=== PATIENT | male | born 1960 | race Caucasian/White ===

== ENCOUNTER → 2024-03-23 10:13 | Outpatient (CLI) | payer OTHER, SELFPAY ==
--- NOTE | 2024-03-23 10:18 | EKG_ITS ---
[place] [address] [address], [place] [address] Test Date: 2024-03-23 Pat Name: Arsalan Pereira Department: Room: Gender: Male Hospital Pharmacist: ezynep : 1960 Requested By: Order Number: [id number] Reading MD: Madi Gerardo Measurements Intervals Mark Rate: 70 P: 29 NM: 202 QRS: 35 QRSD: 84 T: 31 QT: 382 QTc: 412 Interpretive Statements Normal sinus rhythm Electronically Signed On 03-24-2024 19:51:08 PDT by Madi Gerardo
[2024-03-23 10:42] LABS: Add Manual Diff / Slide Review NO; Basophils Absolute Auto 0 /uL (0-100); Basophils Percent Auto 0.4 % (0-2); Eosinophils Absolute Auto 100 /uL (0-450); Eosinophils Percent Auto 1.4 % (2-4); Hemoglobin 13.8 g/dL (13.5-17.5); Lymphocytes Absolute Auto 1700 /uL (1100-4500); Lymphocytes Percent Auto 17.2 % (25-40); Mean Corpuscular HGB Conc 33.7 % (30-36); Mean Corpuscular Hemoglobin 29.9 PG (26-34); Mean Corpuscular Volume 88.6 fL (80-100); Monocytes Absolute Auto 700 /uL (0-900); Monocytes Percent Auto 7.4 % (3-14); Neutrophils Absolute Auto 7300 /uL (1500-7000); Neutrophils Percent Auto 73.6 % (50-75); Platelet Count 243 X10^3/uL (150-400); Red Blood Cell Count 4.63 X10^6/uL (4.5-5.9); Red Cell Distribution Width 14.8 % (11.6-14.8); White Blood Cell Count 9.9 X10^3/uL (4.5-11.0)
[2024-03-23 11:03] LABS: BUN Creatinine Ratio 14.8 (6-22); Blood Urea Nitrogen 13 mg/dL (9-20); Carbon Dioxide 24 mmol/L (22-32); Chloride 105 mmol/L (98-107); Estimated Glomerular Filt Rate > 60 mL/min (>60); Glucose 89 mg/dL (80-110); HEMOLYSIS < 15 (0-50); Potassium 4.7 mmol/L (3.4-5.1); Sodium 136 mmol/L (137-145)
== END ==
PROVIDERS: Referring Provider Orthopaedic Surgery; Visit Provider Orthopaedic Surgery
DX: Z01.818 Encounter for other preprocedural examination (principal); Z01.812 Encounter for preprocedural laboratory examination
CPT/HCPCS: 36415; 80048; 85025; 93005

== ENCOUNTER → 2024-04-29 14:45 | Outpatient (CLI) | payer OTHER, SELFPAY ==
--- NOTE | 2024-04-29 | DI.CT.S_ITS ---
PROCEDURE: CT ANGIO CHEST INDICATIONS: Thoracic aortic aneurysm, without rupture, unspecified TECHNIQUE: After the administration of intravenous contrast, 2.5 mm thick sections acquired from the lung apices to the posterior lung bases. Maximum intensity projection (MIP) oblique sagittal reformats were then acquired parallel to the aortic arch. For radiation dose reduction, the following was used: automated exposure control. COMPARISON: None. FINDINGS: Image quality: Diagnostic. Aorta: Fusiform aneurysmal dilatation of the ascending aorta measuring 4.8 cm in greatest diameter (series 4, image 70). Remainder of the thoracic aorta appears patent and normal in caliber without aneurysmal dilatation, significant stenosis or dissection. Origins of the great vessels are patent. Lower Neck: No enlarged lymph nodes. Thyroid: No thyroid nodules which require sonographic follow up, per consensus guidelines. Axillae: No enlarged lymph nodes. Chest Wall: Unremarkable. Bones: Unremarkable. Lungs and Pleura: No pneumothorax or pleural effusions. No consolidation or suspicious nodules. Heart: Borderline heart size. Moderate degree of coronary artery calcifications. Thoracic Vessels: Pulmonary arteries demonstrate normal size. Mediastinum and Marlen: No enlarged lymph nodes. Esophagus: No wall thickening. Large hiatal hernia with paraesophageal component. 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 IMPRESSION: Fusiform aneurysmal dilatation of the ascending aorta measuring 4.8 cm in greatest diameter. Dictated by: Vitaly Petty M.D. on 04/29/2024 at 16:29 Approved by: Vitaly Petty M.D. on 04/29/2024 at 16:33
[2024-04-29 15:13] LABS: Estimated Glomerular Filt Rate > 60 mL/min (>60)
== END ==
PROVIDERS: Radiology Diagnostic Radiology; Referring Provider Internal Medicine; Visit Provider Internal Medicine
DX: I71.20 Thoracic aortic aneurysm, without rupture, unspecified (principal); I25.10 Atherosclerotic heart disease of native coronary artery without angina pectoris
CPT/HCPCS: 36415; 71275; 82565; Q9967

== ENCOUNTER 2024-05-19 07:22 | Day surgery (SDC) | payer OTHER, SELFPAY ==
[2024-04-08 12:45] VITALS: BMI 39.1
[2024-05-19] VITALS (7 sets, daily range): BP systolic 149–164; BP diastolic 79–107; PULSE 75–86; RESP 15–22; TEMP 36.1–36.5; O2SAT 90–97; BMI 39.1
--- NOTE | 2024-05-19 06:00 | DI.RAD.S_ITS ---
PROCEDURE: XR SHOULDER LT 1V INDICATIONS: TSA TECHNIQUE: 1 views of the shoulder were acquired. COMPARISON: None. FINDINGS: Bones: Left shoulder reverse arthroplasty postsurgical changes. Orthopedic hardware is in expected position. No fracture or dislocation. Moderate acromioclavicular joint osteoarthritis Soft tissues: No suspicious soft tissue calcifications. Cardiac loop recorder noted. IMPRESSION: Expected postsurgical change for left shoulder reverse arthroplasty. Dictated by: Carlyn Walker MD, PhD on 05/19/2024 at 12:45 Approved by: Carlyn Walker MD, PhD on 05/19/2024 at 12:46
--- NOTE | 2024-05-19 07:38 | P.HP_ITS ---
History of Present Illness History of Present Illness Date Patient Seen: 05/19/24 Time Patient Seen: 07:38 Chief complaint: Left Reverse TSA Narrative: This is a pleasant 63-year-old male here today for left shoulder replacement. He has known glenohumeral arthritis [facility] Medical History (Updated 04/08/24 @ 13:30 by Yajaira Carranza, RN) Neuropathy GIB (gastrointestinal bleeding) GERD (gastroesophageal reflux disease) Sarcoidosis HLD (hyperlipidemia) History of migraine headaches HTN (hypertension) PTSD (post-traumatic stress disorder) Depression Mcclain esophagus Urinary incontinence TRACY (obstructive sleep apnea) Asthma Surgical History (Updated 04/08/24 @ 13:36 by Yajaira Carranza, LEWIS) History of lumbar fusion History of cholecystectomy History of appendectomy History of tonsillectomy H/O hernia repair H/O cataract extraction History of loop recorder History of arthroplasty of right shoulder (2023) Social History household members: spouse Smoking Status: Former smoker alcohol intake: current Meds Home Medications and Allergies Home Medications Medication Instructions Recorded Confirmed Type acetaminophen 325 mg tablet 650 mg PO Q6H PRN Pain (Scale 04/08/24 04/08/24 History (Tylenol) Score 4-6) albuterol sulfate 90 mcg/actuation 2 puff inhalation Q6H PRN SOB 04/08/24 04/08/24 History aerosol inhaler atenolol 50 mg tablet 50 mg PO DAILY 04/08/24 04/08/24 History atorvastatin 40 mg tablet 40 mg PO DAILY 04/08/24 04/08/24 History carboxymethylcellulose sodium 0.5 1 drp EYE-BOTH QID PRN Dry Eyes 04/08/24 04/08/24 History % eye drops cholecalciferol (vitamin D3) 25 25 mcg PO DAILY 04/08/24 04/08/24 History mcg (1,000 unit) capsule (Vitamin D3) cyclobenzaprine 10 mg tablet 10 mg PO BEDTIME 04/08/24 04/08/24 History diphenhydramine 25 2 tab PO BEDTIME PRN Pain (Scale 04/08/24 04/08/24 History mg-acetaminophen 500 mg tablet Score 4-6) (Tylenol PM Extra Strength) docusate sodium 50 mg capsule 100 mg PO BEDTIME 04/08/24 04/08/24 History duloxetine 60 mg capsule,delayed 120 mg PO DAILY 04/08/24 04/08/24 History release erenumab-aooe 70 mg/mL 70 mg SUBCUT QMONTH 04/08/24 04/08/24 History subcutaneous auto-injector latanoprost 0.005 % eye drops 1 drp EYE-BOTH BEDTIME 04/08/24 04/08/24 History lidocaine 5 % topical patch 1 patch topical DAILY 04/08/24 04/08/24 History miconazole nitrate 2 % topical 1 spray topical BID 04/08/24 04/08/24 History spray powder mometasone 100 mcg/actuation HFA 2 puff inhalation BID PRN asthma 04/08/24 04/08/24 History aerosol inhaler nortriptyline 50 mg capsule 50 mg PO BEDTIME 04/08/24 04/08/24 History oxybutynin chloride 10 mg 20 mg PO BEDTIME 04/08/24 04/08/24 History tablet,extended release 24 hr pantoprazole 40 mg tablet,delayed 40 mg PO BID 04/08/24 04/08/24 History release polyethylene glycol 3350 17 17 g PO DAILY PRN Constipation 04/08/24 04/08/24 History gram/dose oral powder potassium chloride 10 mEq 30 meq PO DAILY 04/08/24 04/08/24 History capsule,extended release pregabalin 300 mg capsule 300 mg PO BID 04/08/24 04/08/24 History tamsulosin 0.4 mg capsule 0.8 mg PO BEDTIME 04/08/24 04/08/24 History Allergies Allergy/AdvReac Type Severity Reaction Status Date / Time morphine AdvReac Severe Rash Verified 04/08/24 13:03 ibuprofen AdvReac Gastrointestinal Verified 04/08/24 13:03 Upset metal sebas Allergy Uncoded 04/08/24 14:26 Review of Systems Review of Systems ROS: Yes All systems reviewed with the patient and are negative except as otherwise documented Exam Narrative Exam Narrative: HEENT: Head atraumatic eyes anicteric moist mucous membranes Cardiovascular: Palpable peripheral pulses extremities are warm and well perfused Respiratory: Breathing comfortably on room air Psychiatric: Appropriate mood and affect Neuro: No acute deficits Musculoskeletal: Exam of the left upper extremity demonstrates no obvious skin lesions or deformities. Limited range of motion as noted at his last office visit. Sensation intact to light touch in median, radial, ulnar, axillary nerve distributions. 2+ radial pulse with brisk capillary refill less than 2 seconds. Assessment & Plan Assessment & Plan narrative: Assessment: Left glenohumeral arthritis Plan: Left total shoulder replacement, likely reverse as previously discussed. Risks and benefits of surgery were discussed again including the risk of infection, damage to internal structures, bleeding, nerve injury, instability, need for revision surgery, blood clots, anesthesia and . No guarantees were made regarding outcomes. Patient expressed understanding and accepted these risks and wished to go forward with surgery and consent was signed. Time-Based Coding :: [TOTAL MINUTES] spent with patient and on the chart (including review of chart, obtaining history, exam, reviewing outside data, placing orders, documenting exam and treatment plan, and counseling patient) on [DATE].
[2024-05-19] MEDS: LACTATED RINGERS 1,000 ML 42 ML IV (08:26)
[2024-05-19] MEDS: ACETAMINOPHEN 325 MG TABLET 975 MG PO (08:26)
[2024-05-19] MEDS: ALBUTEROL 2.5 MG/3 ML NEB (ADULT) INH (08:31)
[2024-05-19] MEDS: CEFAZOLIN VIAL 3 GM in SODIUM CHLORIDE 0.9% 100 ML IV (09:53)
[2024-05-19 10:03] LABS: BUN Creatinine Ratio 11.3 (6-22); Blood Urea Nitrogen 11 mg/dL (9-20); Calcium 9.8 mg/dL (8.4-10.2); Carbon Dioxide 23 mmol/L (22-32); Chloride 107 mmol/L (98-107); Estimated Glomerular Filt Rate > 60 mL/min (>60); Glucose 100 mg/dL (80-110); HEMOLYSIS < 15 (0-50); Potassium 4.6 mmol/L (3.4-5.1); Sodium 137 mmol/L (137-145)
[2024-05-19] MEDS: TRANEXAMIC ACID 1,000 MG VIAL 1000 MG INJ (10:19)
--- NOTE | 2024-05-19 10:31 | SUR.OPER ---
Beach chair with skytron shoulder positioner. Lower body on padded OR bed. Head in foam padded head cradle, secured with straps. Non-operative arm secured <90 degrees abduction. Pillow under knees. Safety belt at thigh. Cloth tape over blanket over lower legs.
[2024-05-19] MEDS: BUPIVACAINE LIPOSOME 266 MG/20 ML VIAL INJ (10:42)
[2024-05-19] MEDS: BUPIVACAINE 0.25% (PF) 30 ML, EPINEPHrine 0.15 MG INJ (10:42)
--- NOTE | 2024-05-19 12:03 | PM.OP.1 ---
Operative Date/Time/Diagnoses Date of procedure: 05/19/24 Time of procedure: 12:03 Pre-op diagnosis: Left glenohumeral arthritis Post-op diagnosis: same Procedure & Clinicians Procedure: Left reverse total shoulder arthroplasty Same procedure as scheduled: Yes Indications: Indications: This is a 63-year-old male who has glenohumeral arthritis on the left. Symptoms have been present for years, insidious onset. Patient has failed a reasonable attempt at conservative therapy. After extensive discussion in clinic, they wished to go forward with surgery. Risks and benefits were described including the risk of infection, bleeding, damage to internal structures including nerves. We also discussed the risk of failure of surgery and the need for revision surgery as well as the risk of anesthesia. The patient expressed understanding with these risks and wished to go forward with surgery. Surgeon: Mike Arauz Admissions Supervisor: Polly Parikh Anesthesia Type: General Operative Notes Findings: Findings: Osteoarthritis of the glenoid and humeral head as well as mostly deficient subscapularis Closure Type: primary Specimen(s): none sent Prosthetic devices, grafts, tissues, transplants, or devices: Tornier implants Base plate: 29 mm, full wedge Glenosphere: 39 mm Stem: Perform 4 Poly: +0, 55% coverage Estimated Blood Loss (mL): 200 Procedure in detail: Patient was seen in the preoperative holding unit. The correct left shoulder was identified and marked with my initials. Again we discussed the risks and benefits of surgery and they wished to go forward with surgery. The patient was brought back to the operating room and placed supine on the operating table. Smooth endotracheal intubation was performed by anesthesia. All prominences were padded and they were placed into the beach chair position. Intravenous antibiotics were given. The left shoulder was then prepped with the standard sterile preparation and draping. A time-out was then performed in my initials were again identified on the correct shoulder. 1 g of IV tranexamic acid was given. A standard deltopectoral incision was made. Skin flaps were made. The cephalic vein was identified and retracted laterally. This was protected throughout the remainder of the case. Sharp dissection was made along the deltoid, subacromial and subcoracoid space to release adhesions. The conjoined tendon was identified and the axillary nerve was palpated and continuous using the tug test. It was protected throughout the remainder of the case. A brown retractor was placed underneath the deltoid muscle and a darach retractor underneath the conjoint tendon. The subscapularis muscle was ntoed to be intact but severely thinned. The anterior circumflex artery and associated veins on the lower border of the subscapularis were identified and tied off using 0-Vicryl. The biceps tendon was identified in the bicipital groove. This was released from its sheath, and taken from its origin on the glenoid and tied into the pectoralis tendon for a solid tenodesis. We then began a subscapularis peel. The subscapularis was tagged with an Ethibond suture. A 360 degree circumferential release of the subscapularis was performed with protection of the axillary nerve. The coracohumeral ligament was released at the base of the coracoid. The shoulder was then dislocated. Osteophytes were removed using combination of rongeur and osteotome. The rotator cuff was noted to be intact. An intramedullary guide was used set at version of 20?. Using an oscillating saw a conservative humeral head cut was made. Impaction reamers were reamed up to a size 4 stem with a built-in angle 135?. A neck protector was placed. Attention was then turned to the glenoid. After retracting the humeral head posteriorly a circumferential release was performed of the capsule with protection of the axillary nerve. The labrum was then released starting at the biceps anchor and going around the rim a small amount of triceps was released from the inferior glenoid. A center guide pin was then placed using the guide, followed by Reamer. After adequate cartilage was removed the boss was reamed and the centeral hole was drilled and measured. The base plate was then implanted and screwed into place. The peripheral screws were then sequentially drilled, measured, and placed. A 36 standard glenosphere was then selected and screwed into place onto the base plate. Turning back to the humerus, the humeral head was delivered and trialed with a 0 concentric. The arm was taken through range of motion and this was felt to be stable. The trial was then removed and a dilute Betadine wash was then performed with 1 L of sterile saline. Before placing the final implant, drill holes were made in the bicipital groove for the subscapularis repair, and sutures were passed through the drill holes. The final stem was then impacted into the humerus. The shoulder was then reduced and again brought through range of motion and was felt to be stable. The subscapularis was then repaired using a modified racking hitch with nice loupes. The deltopectoral interval was then closed with #2 Ethibond. The skin was closed with 2-0 vicryl and 3-0 Monocryl followed by Aquacel dressing. Patient was awoken from anesthesia and brought back to the postoperative recovery unit without issue. They were placed into a sling. Assisting participation: This operation could not have been safely performed (without compromising the technical results or length of the procedure) without the assistance of a skilled assistant professor surgical technology. The assistant professor surgical technology was medically necessary for proper positioning, retraction and manipulation of instruments, proper exposure, graft prep, and manipulation of tissue. Complications: none Post-operative Condition: stable Disposition: PACU Plan for aftercare: Postoperative instructions: Sling to remain on for 6 weeks. No external rotation past neutral for 6 weeks. Okay for the sling to come off for shower. Okay to shower over the Aquacel dressing. If any water gets underneath the dressing, remove the dressing. First postoperative visit in 2 weeks.
[2024-05-19] MEDS: HYDROMORPHONE 2 MG TABLET PO (12:19)
== END 2024-05-19 12:51 | disposition home or self-care (01) ==
LOC: OR 07:23 → AC 07:23
PROVIDERS: Anesthesiology; Referring Provider Orthopaedic Surgery; Visit Provider Orthopaedic Surgery
PROC: (CPT 23472; principal; 2024-05-19 09:15)
DX: M19.012 Primary osteoarthritis, left shoulder (principal); M25.712 Osteophyte, left shoulder
CPT/HCPCS: 23472; 73020; 80048; C1776; C9290; J0171; J0330; J0690; J1100; J2250; J2405; J2704; J3010; J7613

== ENCOUNTER → 2024-09-15 12:29 | Outpatient (CLI) | payer OTHER, SELFPAY ==
[2024-09-15 13:33] LABS: Add Manual Diff / Slide Review NO; Basophils Absolute Auto 100 /uL (0-100); Basophils Percent Auto 0.7 % (0-2); Eosinophils Absolute Auto 100 /uL (0-450); Eosinophils Percent Auto 0.9 % (2-4); Hematocrit 45.2 % (41-53); Hemoglobin 15.1 g/dL (13.5-17.5); Lymphocytes Absolute Auto 2300 /uL (1100-4500); Lymphocytes Percent Auto 23.4 % (25-40); Mean Corpuscular HGB Conc 33.5 % (30-36); Mean Corpuscular Hemoglobin 28.4 PG (26-34); Mean Corpuscular Volume 84.9 fL (80-100); Monocytes Absolute Auto 600 /uL (0-900); Monocytes Percent Auto 6.2 % (3-14); Neutrophils Absolute Auto 6700 /uL (1500-7000); Neutrophils Percent Auto 68.8 % (50-75); Platelet Count 254 X10^3/uL (150-400); Red Blood Cell Count 5.32 X10^6/uL (4.5-5.9); Red Cell Distribution Width 14.6 % (11.6-14.8); White Blood Cell Count 9.7 X10^3/uL (4.5-11.0)
== END ==
LOC: LAB 12:33
PROVIDERS: Referring Provider Orthopaedic Surgery Foot and Ankle Surgery; Visit Provider Orthopaedic Surgery Foot and Ankle Surgery
DX: Z01.818 Encounter for other preprocedural examination (principal)
CPT/HCPCS: 36415; 85025

== ENCOUNTER 2024-10-19 07:20 | Day surgery (SDC) | payer OTHER, SELFPAY ==
[2024-10-10 09:47] VITALS: BMI 41.1
[2024-10-19] VITALS (19 sets, daily range): BP systolic 107–139; BP diastolic 62–96; PULSE 81–112; RESP 12–20; TEMP 36.3–37.2; O2SAT 91–96; BMI 41.1
--- NOTE | 2024-10-19 06:00 | DI.RAD.S_ITS ---
PROCEDURE: XR KNEE LT 1TO2V INDICATIONS: total left knee TECHNIQUE: 2 view(s) of the knee acquired. COMPARISON: None. FINDINGS: Bones: Patient is status post knee joint arthroplasty. Hardware components are in expected positions. Visualized bony structures are intact. Soft tissues: Overlying postoperative changes are noted. IMPRESSION: Expected post-operative appearance of a knee arthroplasty. Dictated by: Carley Parikh M.D. on 10/19/2024 at 12:05 Approved by: Carley Parikh M.D. on 10/19/2024 at 12:05
--- NOTE | 2024-10-19 08:07 | PM.PREOP ---
Pre-operative Note Interval Note History & Physical reviewed/Exam performed by Physician: Yes Changes to H&P: No
[2024-10-19] MEDS: ALBUTEROL/IPRATROPIUM 3 ML AMPUL INH (08:16)
[2024-10-19] MEDS: FAMOTIDINE 20 MG/2 ML VIAL IV (08:17)
[2024-10-19] MEDS: LACTATED RINGERS 1,000 ML 42 ML IV (08:17)
[2024-10-19] MEDS: ACETAMINOPHEN 325 MG TABLET 975 MG PO (08:17)
[2024-10-19] MEDS: CELECOXIB 200 MG CAPSULE PO (08:18)
--- NOTE | 2024-10-19 08:18 | PM.OP.1 ---
Operative Date/Time/Diagnoses Date of procedure: 10/19/24 Time of procedure: 08:45 Pre-op diagnosis: Left knee arthritis BMI 41 Post-op diagnosis: same Procedure & Clinicians Procedure: Total knee arthroplasty, left CPT code 06762 Robotic assisted surgery [id number] Computer navigated assisted surgery [id number] Same procedure as scheduled: Yes Indications: The patient is a 64-year-old male with end-stage [id number] knee arthritis. The patient has a significant bilateral varus knee arthritis. He has failed conservative treatment for his left knee arthritis and it was indicated for left total knee arthroplasty. They have failed conservative treatment with activity modifications, injections, physical therapy and bracing. They has been indicated for total knee replacement. The risks and benefits of the procedure have been discussed with the patient even opportunity to ask questions. The risks of surgery include but are not limited to infection, malunion, nonunion, fracture, loosening, persistence of pain, damage to nerves and blood vessels, need for additional procedures, DVT, PE, cardiopulmonary complications and . The patient expressed a thorough understanding of the risks and benefits of surgery and has elected to proceed. Consent was signed in the office. During the operation the services of physician surgical scrub tech were medically indicated and necessary to provide the exposure of the operative site for the surgical procedure and to maintain the limb in a proper position to carry out the procedure safely and efficiently. Without a qualified laboratory chemical assistant being present this would extend the operative procedure and would have made the procedure more technically difficult to perform. The surgical scrub tech was medically necessary for the proper positioning, retraction and manipulation of the limb, proper exposure, and manipulation of the tissue for implantation implants and closure. Surgeon: Chari Cook Alarm Installation Technician: Semaj Jones Anesthesia Type: General, Peripheral nerve block and Local Operative Notes Findings: End-stage severe tricompartmental knee arthritis, varus pattern left knee large marginal osteophytes and full-thickness cartilage loss Closure Type: primary Specimen(s): none sent Prosthetic devices, grafts, tissues, transplants, or devices: Mclean and nephew journey 2 bcs Femur Oxinium8 Tibia7 Patella 35x7.5 Poly 9mm Estimated Blood Loss (mL): 200 Blood products transfused: none Tourniquet time (min): 88 Procedure in detail: Patient was seen in the preoperative area where the patient and site of surgery were identified in the operative knee was marked informed consent confirmed. This was the left knee. Patient received the appropriate preoperative antibiotics this was 3 g of Ancef. And other preoperative medications and was taken to the operating room placed on operating table in the supine position. Spinal anesthetic were administered. The operative extremity was then prepped and draped in the standard sterile fashion with a nonsterile tourniquet high on the thigh. Patient was placed on the green foam bolsters. A lateral post was placed at the level of the proximal thigh /trochanter area as a lateral post. Formal time-out procedure was performed confirming the patient's side and site of surgery and administration of appropriate preoperative antibiotics and implants were in the room accounted for. All were in agreement. Patient received a preoperative dose of tranexamic acid and then a 2nd dose at tourniquet release Patient was prepped and draped in the standard sterile fashion and the foot was placed into the leg de la paz. This was taken into high flexion and the incision was marked out over the anterior knee to the level of the medial tubercle tubercle. The Esmarch was then used for exsanguination and the tourniquet was inflated to 250 mmHg. Was made through the skin and subcutaneous tissue in high flexion this was then brought down into 30? of flexion for the medial parapatellar arthrotomy. A marker pen was used to staci the arthrotomy site for later repair. Joint fluid was evacuated. The anterior osteophytes and soft tissues were removed. Routine medial release was initially made along the medial proximal tibia with Bovie. The patella was 1st cut using the saw sized and prepped and then subluxed throughout the case and protected. The leg was then taken into extension and the patella was everted and the patella was cut to accommodate the patellar button. This was sized to a 35mm button for a 7.5 mm thickness to recreate the original dimensions of the patella. Poly was removed and the protector replaced and the patella was subluxed and the knee was taken back up into flexion and attention was returned to the femur. Then the rotational landmarks of [place] line and the trans epicondylar axis were marked on the femur with electrocautery. ACL and PCL were released. Then the Cori robotic pins were placed into the femur and tibia and the race set up. Landmarks were established and the robotic planning was commenced. Plan was developed and improved and adjusted as necessary to create a balanced knee. Knee was balanced using 3.5? of external rotation in the distal femur. Initial 2 mm were taken off the distal femur for the flexion contracture and then an additional 1 mm off the tibia balance the knee to 1-2 mm in flexion and extension in both medial and lateral compartments. Plan was satisfactory the bur was used to remove the distal femur then the 5 in 1 cutting block was applied complete the femur cuts. Attention was then turned to the tibia and the tibial resection was made in accordance with the robotic planning. The trials were placed. And the femoral notch was cut a standard fashion using Reamer then slap hammer. The knee was trialed and the checked. Knee was balanced in flexion extension. Range of motion 0-135 degrees was obtained. The rotation femoral trial was marked Bovie on the bone and checked with a long hany. The tibia was then finished with a drill and flange cut and then The trial implants were removed. Then in extension the posterior capsule was injected with a mixture of 40 mL of 0.25% Marcaine and 20 mL of 266 mg Exparel care to avoid excessive injection posterior laterally. The remainder of this was saved for the capsule and subcutaneous tissue and placed during cement curing. The wound and bone was irrigated with pulsatile lavage. This was then dried with a sponge. The components were verified and opened and the cement was mixed. Cement was applied to the components and then to the bone then the tibia was cemented in place 1st followed by the femur then the patella. Excess cement was removed. With care looking around the back of the knee. Remainder of the injection was injected around the capsule. trial poly was placed back in the leg was placed into extension for the patellar cementing. After this was cured approximately 15 minutes later and the dilute Betadine solution was placed for at least 3 minutes in the wound this was then irrigated out and the final poly was placed. This was a 9 mm poly. The tourniquet was released hemostasis was achieved. Final 1g of tranexamic acid was given IV at the time of tourniquet release. The capsule was closed with 1. Ethibond suture. Followed by a running Quill stitch. Subcutaneous layer was closed with 3-0 Vicryl suture. Skin was closed with a running V lock suture Stratafix Monocryl type suture and Dermabond. An Aquacel dressing was placed . An Newton wrap was applied. Anesthetic was terminated the patient was woken from anesthesia and taken to recovery room in good condition. There no immediate complications from this procedure. The patient will be maintained on a standard total knee replacement protocol with weight-bearing as tolerated. Complications: none Post-operative Condition: stable Disposition: PACU Plan for aftercare: Standard total knee postoperative rehab full weight-bearing immediate range of motion. Cryotherapy. Start physical therapy within 1 week. Use assistive devices for ambulation. Follow up in Orthopedic Clinic in 2 weeks. Aspirin 81 mg b.i.d. x6 weeks for DVT prophylaxis.
--- NOTE | 2024-10-19 08:24 | EKG_ITS ---
[place] [id number] [place] [id number] Test Date: 2024-10-19 Pat Name: Arsalan Pereira Department: [facility] Room: Gender: Male Cargo Agent: MAURICE : 1960 Requested By: Order Number: [id number] Reading MD: Richard Asif MD Measurements Intervals [place] Rate: 89 P: 22 ND: 178 QRS: 62 QRSD: 86 T: -15 QT: 372 QTc: 452 Interpretive Statements Normal sinus rhythm Cannot rule out Inferior infarct , age undetermined Electronically Signed On 10-19-2024 11:03:04 PDT by Richard Asif MD
--- NOTE | 2024-10-19 08:25 | EKG_ITS ---
[facility] [address], [place] [address] Test Date: 2024-10-19 Pat Name: Arsalan Pereira Department: [facility] Room: Gender: Male First Aid Nurse: MAURICE : 1960 Requested By: Order Number: [id number] Reading MD: Richard Asif MD Measurements Intervals [place] Rate: 89 P: 3 [place]: 204 QRS: 63 QRSD: 88 T: 4 QT: 376 QTc: 457 Interpretive Statements Normal sinus rhythm Electronically Signed On 10-19-2024 11:03:06 PDT by Richard Asif MD
--- NOTE | 2024-10-19 08:45 | SUR.PREOP ---
Block start time 0832 with a time out. Monitoring initiated and maintained throughout procedure. Oxygen and medications given by anesthesia provider or per provider's instructions. Patient remained stable throughout procedure, no adverse reactions noted. Block end time 0835.
[2024-10-19] MEDS: CEFAZOLIN 2 GM/100 ML PREMIX 100 ML IV (08:55)
[2024-10-19] MEDS: TRANEXAMIC ACID 1,000 MG VIAL 1000 MG INJ ×2 (09:10→10:37)
--- NOTE | 2024-10-19 09:17 | SUR.OPER ---
Continued from skin description: 1cm lesion on patient anterior guillen, I pulled off a scab last week Dr. Cook aware.
--- NOTE | 2024-10-19 09:21 | SUR.OPER ---
Supine on padded OR bed. Pillow under head, arms secured on padded armboards <90 degree abduction. Safety belt across torso. Non-operative leg secured with tape over blanket over lower leg. Operative leg secured in DeMayo positioner. Foam padded brace at thigh of operative leg.
[2024-10-19] MEDS: BUPIVACAINE LIPOSOME 266 MG/20 ML VIAL INJ (09:32)
[2024-10-19] MEDS: BUPIVACAINE 0.25% W/ EPI 30 ML VIAL 60 ML INJ (09:32)
[2024-10-19] MEDS: LACTATED RINGERS 1,000 ML 100 ML IV (12:45)
--- NOTE | 2024-10-19 15:31 | PT-IP ANOTE ---
PT eval order received. EMR reviewed. checked with nurse and stated that pt is not ready for PT. pt is asleep and unable to stay awake at this time.
[2024-10-19] MEDS: CEFAZOLIN VIAL 3 GM in SODIUM CHLORIDE 0.9% 100 ML IV (16:47)
[2024-10-19] MEDS: PANTOPRAZOLE DR 40 MG TABLET PO (21:12)
[2024-10-19] MEDS: ASPIRIN EC 81 MG TABLET PO (21:12)
[2024-10-19] MEDS: NORTRIPTYLINE HCL 25 MG CAPSULE 50 MG PO (21:12)
[2024-10-19] MEDS: PREGABALIN 75 MG CAPSULE 300 MG PO (21:13)
[2024-10-19] MEDS: DOCUSATE 100 MG CAPSULE PO (21:13)
[2024-10-19] MEDS: ACETAMINOPHEN 325 MG TABLET 650 MG PO (21:13)
[2024-10-19] MEDS: TAMSULOSIN 0.4 MG CAPSULE 0.8 MG PO (21:14)
[2024-10-19] MEDS: CYCLOBENZAPRINE 10 MG TABLET PO (21:14)
[2024-10-19] MEDS: HYDROMORPHONE 2 MG TABLET 4 MG PO (21:25)
[2024-10-20] VITALS: BP 96/58; PULSE 86; RESP 24; TEMP 37.2; O2SAT 93
[2024-10-20] MEDS: HYDROMORPHONE 2 MG TABLET 4 MG PO ×2 (02:07→05:19)
[2024-10-20] MEDS: ACETAMINOPHEN 325 MG TABLET 650 MG PO ×2 (02:08→09:07)
[2024-10-20 05:39] LABS: Hematocrit 39.1 % (41-53); Hemoglobin 12.9 g/dL (13.5-17.5)
--- NOTE | 2024-10-20 08:01 | P.DS_ITS ---
History of Present Illness History of Present Illness Date Patient Seen: 10/20/24 Time Patient Seen: 08:01 Chief complaint: Left Total Knee Arthroplasty - Robot Narrative: Operative Date/Time/Diagnoses Date of procedure: 10/19/24 Time of procedure: 08:45 Pre-op diagnosis: Left knee arthritis BMI 41 Post-op diagnosis: same Procedure & Clinicians Procedure: Total knee arthroplasty, left CPT code 11841 Robotic assisted surgery [id number] Computer navigated assisted surgery [id number] Same procedure as scheduled: Yes Indications: The patient is a 64-year-old male with end-stage lwdx-el-rggw knee arthritis. The patient has a significant bilateral varus knee arthritis. He has failed conservative treatment for his left knee arthritis and it was indicated for left total knee arthroplasty. They have failed conservative treatment with activity modifications, injections, physical therapy and bracing. They has been indicated for total knee replacement. The risks and benefits of the procedure have been discussed with the patient even opportunity to ask questions. The risks of surgery include but are not limited to infection, malunion, nonunion, fracture, loosening, persistence of pain, damage to nerves and blood vessels, need for additional procedures, DVT, PE, cardiopulmonary complications and . The patient expressed a thorough understanding of the risks and benefits of surgery and has elected to proceed. Consent was signed in the office. During the operation the services of physician miller head assistant wet process were medically indicated and necessary to provide the exposure of the operative site for the surgical procedure and to maintain the limb in a proper position to carry out the procedure safely and efficiently. Without a qualified pastrycook's assistant being present this would extend the operative procedure and would have made the procedure more technically difficult to perform. The miller head assistant wet process was medically necessary for the proper positioning, retraction and manipulation of the limb, proper exposure, and manipulation of the tissue for implantation implants and closure. Surgeon: Chari Cook Wagon Driver: Semaj Jones Anesthesia Type: General, Peripheral nerve block and Local Operative Notes Findings: End-stage severe tricompartmental knee arthritis, varus pattern left knee large marginal osteophytes and full-thickness cartilage loss Closure Type: primary Specimen(s): none sent Prosthetic devices, grafts, tissues, transplants, or devices: Mclean and nephew journey 2 bcs Femur Oxinium8 Tibia7 Patella 35x7.5 Poly 9mm Estimated Blood Loss (mL): 200 Blood products transfused: none Tourniquet time (min): 88 Discharge Providers Provider Discharge Date: 10/20/24 Primary care physician: Ivon Frankel MD Consults: 10/19/24 12:44 Consult to Discharge Planning Routine Comment: Consult to Occupational Therapy Evaluate & Treat Comment: Physician Instructions: Evaluate and treat Consult to Physical Therapy Evaluate & Treat Comment: Physician Instructions: postop TKA protocol Discharge provider: Ya Contreras PA-C Summary Hospital Course Discharge Diagnosis: Left knee osteoarthritis, s/p left total knee arthroplasty Hospital Course: Mr Pereira'yamila hospital course was unremarkable. On the morning of POD# 1, he was feeling well and wanted to go home. He had not yet worked w/ PT but had been OOB and walking. He was eating and voiding without difficulty and his pain was well-controlled with oral medication. Exam Vital Signs (past 8 hours): Oxygen Delivery Method Venturi Mask Oxygen Flow Rate 5 Narrative Exam Narrative: 5/5 strength in hip flexors, quadriceps, hamstrings, PF, DF, EHL on right. Sensation to light touch intact throughout RLE, calf soft and compressible. Aquacel CDI. Objective Labs 10/20/24 05:00 Labs: Laboratory Results - last 24 hr 10/20/24 05:00 Hgb 12.9 L Hct 39.1 L PFSH Medical History (Updated 10/12/24 @ 08:46 by Georgiana Garcia RN) Thoracic aortic aneurysm Hearing loss Neuropathy GIB (gastrointestinal bleeding) GERD (gastroesophageal reflux disease) Sarcoidosis HLD (hyperlipidemia) History of migraine headaches HTN (hypertension) PTSD (post-traumatic stress disorder) Depression Mcclain esophagus Urinary incontinence TRACY (obstructive sleep apnea) Asthma Surgical History (Updated 10/10/24 @ 10:17 by Georgiana Garcia RN) History of total replacement of left shoulder joint (05/19/24) History of surgery (07/28/24) History of lumbar fusion History of cholecystectomy History of appendectomy History of tonsillectomy H/O hernia repair H/O cataract extraction History of loop recorder History of arthroplasty of right shoulder (2023) Social History household members: spouse Smoking Status: Current every day smoker alcohol intake: current Discharge Assessment & Plan Assessment and Plan Assessment: Left knee osteoarthritis, s/p left total knee arthroplasty Plan of Treatment: Discharge home, outpt PT, ASA 81mg BID for VTE prophylaxis, f/u in 2 weeks as scheduled. Discharge Plan Discharge Plan Patient Disposition: Home Discharge orders & Medications Discharge Orders: Discharge (Order); Ordered 10/20/24 Ordered By: Ya Contreras Prescriptions: New hydromorphone 2 mg tablet 2 mg PO Q4H PRN (Reason: pain) Qty: 30 0RF Rx Instructions: postop exempt ondansetron 4 mg tablet,disintegrating 4 mg PO Q8H PRN (Reason: nausea and vomiting) Qty: 7 1RF Continued cyclobenzaprine 10 mg Tablet 10 mg PO BEDTIME PRN (Reason: Muscle Spasm) pregabalin 300 mg capsule 300 mg PO BID atenolol 50 mg Tablet 50 mg PO DAILY latanoprost 0.005 % Drops 1 drp EYE-BOTH BEDTIME atorvastatin 40 mg Tablet 40 mg PO DAILY potassium chloride 10 mEq Capsule, Extended Release 30 meq PO DAILY acetaminophen [Tylenol] 325 mg Tablet 650 mg PO Q6H PRN (Reason: Pain (Scale Score 4-6)) oxybutynin chloride 10 mg Tablet Extended Release 24hr 20 mg PO BEDTIME PRN (Reason: Bladder Spasms) docusate sodium 50 mg Capsule 100 mg PO BEDTIME tamsulosin 0.4 mg Capsule 0.8 mg PO BEDTIME carboxymethylcellulose sodium 0.5 % Drops 1 drp EYE-BOTH QID PRN (Reason: Dry Eyes) pantoprazole 40 mg Tablet,Delayed Release (Dr/Ec) 40 mg PO BID lidocaine 5 % Adhesive Patch,Medicated 1 patch TOPICAL DAILY PRN (Reason: Pain) Rx Instructions: leave on most painful area for up to 12 hrs polyethylene glycol 3350 17 gram/dose Powder 17 g PO DAILY PRN (Reason: Constipation) albuterol sulfate 90 mcg/actuation Hfa Aerosol Inhaler 2 puff INHALATION Q6H PRN (Reason: SOB) diphenhydramine-acetaminophen [Tylenol PM Extra Strength] 25-500 mg Tablet 2 tab PO BEDTIME PRN (Reason: Pain (Scale Score 4-6)) nortriptyline 50 mg Capsule 50 mg PO BEDTIME cholecalciferol (vitamin D3) [Vitamin D3] 25 mcg (1,000 unit) Capsule 25 mcg PO DAILY duloxetine 60 mg Capsule,Delayed Release(Dr/Ec) 120 mg PO DAILY mometasone 100 mcg/actuation Hfa Aerosol Inhaler 2 puff INHALATION BID PRN (Reason: asthma) erenumab-aooe 70 mg/mL Auto-Injector 70 mg SUBCUT QMONTH ondansetron 4 mg tablet,disintegrating 4 mg PO Q8H PRN (Reason: nausea and vomiting) Qty: 10 0RF Discontinued hydrocodone-acetaminophen 5-325 mg tablet 1 tab PO Q4-6H PRN (Reason: pain) Qty: 30 0RF Follow up/Referrals: Polly Parikh PA-C [Advanced Digital Campaign Manager] - 10/28/24 1:30 pm (appt:10/28 @ 1:30 with Angelina PIERCE @ [facility] ) Ivon Frankel MD [Primary Care Provider] - Diet/Activity/Treatments Diet: Diet as Tolerated Other treatments: Dressing/Wound care: -Remove the Newton wrap 48 hours after surgery. -Keep Aquacell dressing in place until postoperative follow-up office visit. -you may see some drainage on the bandage, this is ok. If it is leaking or saturated, then the dressing can be changed to clean gauze or a clean surgical dressing from a pharmacy or reinforced with additional gauze and paper tape or dressings over the top. Otherwise, just keep dressing in place until follow up. -Okay to shower. Keep wound out of direct water stream. No soaking or submerging until all the scabs fall off (approximately 6 weeks). -Please call the office if dressing becomes significantly wet, soiled, or saturated. Activities: -Weight-bearing as tolerated. Use front wheeled walker, and progress to cane when safe. -Continue with home exercises as directed by your physical therapist. -Elevate ?toes above the nose if you have significant swelling in your lower leg. (A wedge pillow is easiest.) -Ice your incision as needed for pain/inflammation/swelling. Protect your skin with a folded pillowcase. Follow-up: -Follow-up with your surgeon or PA in the office in 10-14 days after surgery. -Follow-up with your surgeon 6 weeks postoperatively. Call the office if you have chest pain, shortness of breath, significant swelling that will not resolve with elevating, fever over 101?, significantly worsening pain. [facility]: [phone] You have been discharged with medications. These have already been sent to your pharmacy. Pain include pain medications: Oxycodone take 5 mg orally every 4 hours as needed for pain. If your pain is more severe you may take up to 2 or a maximum 3 pills (15 mg) every 4 hours for pain. Take the smallest dose necessary. Instead of oxycodone you may be discharged with hydromorphone. If discharged with hydromorphone 2 mg tablets she may take 1-2 every 3-4 hours as needed for pain. Take the smallest dose necessary. If you have been discharged with tramadol you may take 50 mg or 1 tablet every 4-6 hours as needed for pain. Narcotic medication can make you feel constipated. You can get goao-vpg-yzfakqf stool softener such as docusate sodium-Colace at a pharmacy to help with this. You also have prescriptions for ibuprofen 800 mg take this 3 times a day for least the 1st 10 days after surgery to help with pain control. And acetaminophen (Tylenol) take 500-1000 mg 3 times a day for pain control. You also have a prescription for Zofran (ondansetron) this is a strong anti nausea medication that can be taken up to every 8 hours as needed for nausea Additionally will take a baby aspirin 81 mg twice a day (morning and night) to help prevent blood clots If you have been discharged with ketorolac (toradol) this is a strong anti- inflammatory, do not take ibuprofen/meloxicam/mortin or other NSAIDS while on ketorolac. Once your ketorolac prescription is finished, you may restart taking other NSAIDs again. narcotic pain medication, tylenol and aspirin are fine to continue while on ketorolac. Skin/Wound/Dressing Care Report to your healthcare provider any signs of infection, such as:: chills, fever, night sweats, increased pain, unusual drainage and unusual redness Visit Report/Discharge Packet Instructions: DI for Knee Replacement, DI for Prescription Opioid Use Stand Alone Forms: Patient Portal/API Discharge Data Primary Care Provider: Ivon Frankel Attending Provider: Chari Cook VTE Deep Vein Thrombosis/Pulmonary Embolism Present on Admission: No
[2024-10-20] MEDS: POTASSIUM CHLORIDE 10 MEQ TAB 30 MEQ PO (09:06)
[2024-10-20] MEDS: PANTOPRAZOLE DR 40 MG TABLET PO (09:06)
[2024-10-20] MEDS: ATORVASTATIN 20 MG TABLET 40 MG PO (09:06)
[2024-10-20] MEDS: ASPIRIN EC 81 MG TABLET PO (09:06)
[2024-10-20] MEDS: atenoloL 25 MG TABLET 50 MG PO (09:07)
[2024-10-20] MEDS: PREGABALIN 75 MG CAPSULE 300 MG PO (09:07)
[2024-10-20] MEDS: DOCUSATE 100 MG CAPSULE PO (09:07)
[2024-10-20] MEDS: DULOXETINE 30 MG CAPSULE 120 MG PO (09:07)
--- NOTE | 2024-10-20 10:50 | PT.IIE ---
Current Diagnoses Unilateral primary osteoarthritis, left knee (10/19/24) Surgery Performed Operation Date: 10/19/24 08:45 Actual Procedures p Total Knee Arthroplasty - Robot(Left) - Chari Cook MD Surgical History (Last Updated 10/10/24 @ 10:17 by Georgiana Garcia, RN) H/O cataract extraction H/O hernia repair History of appendectomy History of arthroplasty of right shoulder (2023) History of cholecystectomy History of loop recorder History of lumbar fusion History of surgery (07/28/24) History of tonsillectomy History of total replacement of left shoulder joint (05/19/24) Medical History (Last Updated 10/12/24 @ 08:46 by Georgiana Garcia, RN) Asthma Mcclain esophagus Depression GERD (gastroesophageal reflux disease) GIB (gastrointestinal bleeding) Hearing loss History of migraine headaches HLD (hyperlipidemia) HTN (hypertension) Neuropathy TRACY (obstructive sleep apnea) PTSD (post-traumatic stress disorder) Sarcoidosis Thoracic aortic aneurysm Urinary incontinence Physical Therapy Inpatient Evaluation/Re-Eval M1 PT/OT-IP Prior Functional Status Start: 10/19/24 15:23 Freq: NEEDED Status: Discharge Protocol: Document 10/20/24 10:55 [facility] (Rec: 10/20/24 18:17 [facility] [id number]) Medical Review Prior Functional Status Medical History Reviewed Yes Diet/Fluid Consistency Regular Communication [place] Mobility and Gait used cane, walkers and WC in house-back limits him Activities of Daily Living and IADL's helps dress and bath Social History Household Members spouse Living Arrangements House Number of Floors (Floors) One Floor Number of Stairs To Enter/Railing? 4 [place]NE[place] w/rails Home Environment Standard Height Toilet,Walk in Shower Home Equipment Grab Bars In Shower Employment Status Retired Additional Social History Comment getting a BSC in a couple days , grab bars in shower M2 PT-IP Current Condition Start: 10/19/24 15:23 Freq: NEEDED Status: Discharge Protocol: Document 10/20/24 10:55 [facility] (Rec: 10/20/24 18:17 [facility] [id number]) Physical Therapy Current Condition Current Condition Evaluation Date 10/20/24 Treatment Diagnosis L TKA M3 PT-IP Subjective Start: 10/19/24 15:23 Freq: NEEDED Status: Discharge Protocol: Document 10/20/24 10:55 [facility] (Rec: 10/20/24 18:17 [facility] [id number]) Subjective Physical Therapy Visit Type Type Initial Evaluation Visit Start Time 09:55 Visit Stop Time 10:48 Number of WATCH DIAL PRINTER Visits 0 M4 PT-IP Mobility and Gait Start: 10/19/24 15:23 Freq: NEEDED Status: Discharge Protocol: Document 10/20/24 10:55 [facility] (Rec: 10/20/24 18:17 [facility] [id number]) PT-Bed Mobility Assessment Supine to Sit Supine to Sit Standby Assistance Sit to Supine Sit to Supine Minimal Assistance PT-Transfer Assessment Sit to and From Stand Sit to and from Stand Standby Assistance Equipment Transfer Assistive Device Gait Belt,Front Wheeled Walker Orthotic/Prosthetic Devices or Brace: No Gait Assessment Gait Gait Assistance Required: Standby Assistance Distance (Feet) 140 Assistive Devices Assistive Device Front Wheeled Walker Orthotic/Prosthetic Devices or Brace: No Gait Deviations General Gait Pattern Decreased Stride Length,Flexed Trunk,Step-to Gait Factors Limiting Gait Function Factors Limiting Gait Function Decreased Activity Tolerance, Decreased Strength,Limited Range of Motion,Pain Stair Climbing Assessment Evaluation Level of Assist On Stairs Standby Assistance Devices Stair Climbing Assistive Devices Left Railing,Right Railing Technique/Endurance Stair Climbing Direction Ascend and Descend Stair Climbing Technique Step to Step Number of Steps Climbed 3 Query Text: Stair Climbing Set # Repetitions (reps) 1 PT-Balance Assessment Sitting Balance and Reactions Static Sitting Balance Ability Good Dynamic Sitting Balance Ability Good Standing Balance and Reactions Static Standing Balance Ability Good Dynamic Standing Balance Ability Fair M5 PT-IP Objective Assessments Start: 10/19/24 15:23 Freq: NEEDED Status: Discharge Protocol: Document 10/20/24 10:55 [facility] (Rec: 10/20/24 18:17 [facility] [id number]) Orientation Orientation/Cognition Level of Alertness Alert Language Function Ability Hard of Hearing Gross Range of Motion Lower Extremity ROM Assessment Left Impaired Strength Lower Extremity Strength Assessment Left Impaired Muscle Tone Muscle Tone WNL Yes M6 PT-IP Treatment Start: 10/19/24 15:23 Freq: NEEDED Status: Discharge Protocol: Document 10/20/24 10:55 [facility] (Rec: 10/20/24 18:17 [facility] [id number]) Physical Therapy Treatment Exercises Exercises Ankle Pumps,Quad Sets,Heel Slides,Straight Leg Raises, Short Arc Quads,Passive Knee Extension Hang,Seated Knee Flexion/Extension Education Education Provided Precautions,Weight Bearing Status,Post-Op Packet,Safety M7 PT-IP Assessment and Plan Start: 10/19/24 15:23 Freq: NEEDED Status: Discharge Protocol: Document 10/20/24 10:55 [facility] (Rec: 10/20/24 18:17 [facility] [id number]) PT Summary Assessment and Plan Potential Rehabilitation Potential Excellent Status of Condition at Evaluation Evolving Summary Impairments Pain,ROM,Strength,Balance,Bed Mobility,Transfers,Gait, Activity Tolerance Assessment Summary Pt presents day 1 s/p L TKA w/ good pain control overall and is motivated to get home. He did well with mobility requiring no more than min A which is typical baseline mobility for him as his is supportive and helps him as needed at home. they are prepared w/ADs at home and had no further questions from PT. DC PT Goals Bed Mobility Goal Standby Assistance Transfer Goal Standby Assistance Gait Goal Standby Assistance Gait Distance 100ft Other Goals up/down 4 stairs Days to Meet Goals 1 Frequency of Treatment Frequency Of Treatment Discharge Treatment Plan Physical Therapy Treatment Plan Bed Mobility Training,Transfer Training,Gait Training, Therapeutic Exercise,Balance Retraining,Post Op Education, Neuromuscular Re-ed Weight Bearing Status Weight Bearing Status Weight Bear as Tolerated Recommendations To Nursing Amount of Assist Needed Standby Assistance Discharge Recommendations PT Discharge Recommendations Home with Assistance, Outpatient PT Transportation Needs at Discharge Private Vehicle
--- NOTE | 2024-10-20 11:51 | CM.DANOTE ---
Initial DCP Assessment Visit Note Reviewed EMR and team rounds for status updates. Met with pt and spouse at bedside to introduce self and role. Pt was found to be alert, oriented, and able to discuss his plan for home recovery. He has been medically cleared for d/c today, and states that he already has OP PT set up for postoperative therapies. Pt lives modified independently with his spouse in their own home in [place]. His will plan to transport him home. They both declined any CM d/c assistance or resource needs at this time. Payor: [facility] Attending: Dr. Cook Pt is a 64 year-old M post-op day 1 from a L-total knee arthroplasty surgery. He has a hx of worsening L-knee pain. He did well with no postoperative complications, was able to work with therapies, and has been d/c'd home. He states having all the DME he needs for home recovery, and declines any further needs at this time. Discharge Planning/Care Management Advanced directive,confirm from FACILITY Start: 10/19/24 18:32 Freq: Q24H Status: Discharge Protocol: Document 10/19/24 18:32 AKT (Rec: 10/19/24 18:32 AKT [id number]) Advance Directive, confirm on record Time 18:32 Person contacted to bring in Copy received No CM Discharge Assessment Start: 10/20/24 11:44 Freq: Status: Active Protocol: Document 10/20/24 11:44 DPL (Rec: 10/20/24 11:51 DPL [id number]) Discharge Planning Assessment Assigned Ground Crew Lines Person MAL Ku Advance Directives? Yes Advance Directives on File No History Provided By Patient,Family Member,Medical Record Has Patient been admitted in last 30 No days? Prior Living Arrangements House Household Members spouse Type of transporation used prior to Relies on Others admit Independent with ADL's No: modified independent with a 4WW/FWW Is patient alert and oriented? Yes Needs Assistance With Home Chores / Shopping Caregiver for Another No Community Services used prior to Physical Therapy admission: DME Already Rented / Owned Bath Bench,Elevated Toilet Seat,FWW / Walker Comment 4WW Clinicals Faxed No Patient/Family Preference OP PT Therapy Barriers to Discharge No Discharge Plan Home Transportation Arrangement Spouse Referrals Initiated None needed Whiteboard Updated in Patient Room with Yes name and ext. # of Ground Crew Lines Person Review Status In Process Please Provide Date Initial DC 10/20/24 Assessment Was Performed Pre-Anesthesia Assessment Start: 10/10/24 09:47 Freq: Status: Discharge Protocol: Document 10/10/24 09:47 CAB (Rec: 10/10/24 10:56 CAB [id number]) Pre-Anesthesia Assessment PAC Comment Phone assess 10/10/24 Preferred Name Jordin Patient Information Reviewed Via Phone Assessment Assessment Completed With Patient Primary Care Provider Ivon Frankel Seen Specialist in Last 12 Months Yes Specialist Seen Commercial Lending Relationship Manager,Orthopedist,Other Comment Vascular Primary Language Argentine Preferred Language Argentine Pediatric Genetic Counselor Required No Height 187.96 cm Weight 145.15 kg Body Mass Index (BMI) 41.1 Hearing Ability Hearing Impaired,Use of Hearing Aid Visual Assist Glasses Barriers to Learning Auditory,Memory,Visual Other Aids No Hx Anesthesia Reactions No: Pt would like Dilaudid for pain Hx Family Anesthesia Reaction No Hx Malignant Hyperthermia No Hx Blood Transfusions Yes: GI Bleed approx 2019 Hx Blood Transfusion Reaction Yes: Pt and unsure what the reaction was Anesthesia Review Requested Yes: PAC requested re: Medical 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 No Does patient have JARRETT/SOB No Hx Sleep Apnea Yes: Mild/borderline CPAP/BIPAP use not prescribed Currently Taking a Beta Danielle Yes: Atenolol Can You Climb a Flight of Stairs Without Unable to walk upstairs due to SOB knees. Hx Chest Pain No Hx SOB No Hx Syncope or Dizziness Yes: Syncope s/p loop recorder , now removed 07/30/24 Anti-Coagulant Therapy No Has a Commercial Lending Relationship Manager Yes: Last visit 05/05/24 Commercial Lending Relationship Manager name Dr. Mcdonnell @ [place] Cardiac Testing No: CTA @ 04/29/24 Hx Pacemaker/ICD No Pacemaker Rep Required? No Cardiac Clearance Received No Comment Cardiac & vascular records scanned and in surgery folder Dysphagia Yes: Mcclain's esophagus Gastrointestinal Symptoms Reflux Urinary Catheter Present No Hx Urinary Self Catheterization No Diabetes No Hx Drug Resistant Organism No Presence of External or Internal Medical Yes: loop recorder, cruz Devices shoulder hardware, back fusion , abdominal mesh. Month and year received flu vaccine 2023 Received a COVID vaccine? Yes Marital Status Lives With spouse Current Living Arrangements House Number of Floors (Floors) One Floor Number of Stairs To Enter/Railing? 4 steps Support System Spouse Does the Patient Have Assistance After Yes Surgery Patient Discharge Plan Description Return Home Comment Pt advised same day surgery per surgeon Feels Safe in Current Environment Yes Been Physically Hurt or Threatened By a No Person in Current Environment Do you have thoughts of harming yourself None or others? Are you currently considering suicide? No Do you have a plan to hurt yourself or No Plan others? Do You Have Any Spiritual Beliefs That No May Affect Your HC Choices? Do You Have Any Cultural Practices That No May Affect Your HC Choices? Who Can We Speak to About Patient's Care Family, friends Identifying Code for Release of Patient Declines to issue Information Health Care Proxy/Next of Kin Fidelina () Health Care Proxy Emergency Contact Name Fidelina Pereira - evelina Emergency Contact Advance Directives? Yes Advance Directives on File No Power of Manager Utility Yes Power of Manager Utility Name Fidelina hoyt Power of Manager Utility Phone Number Fidelina hoyt PAC Instructions Durable medical equipment, Medications to take/avoid, Nasal antibiotic,No ETOH/ petroleum product on skin DOS, NPO,Post-op transportation,Pre -surgical wash,Sensory aids, Sturdy shoes/comfortable clothes,Do not bring valuables and remove jewelry
== END 2024-10-20 11:30 | disposition home or self-care (01) ==
LOC: OR 08:18 → AC 12:32
PROVIDERS: PCP Internal Medicine; Referring Provider Orthopaedic Surgery Foot and Ankle Surgery; Visit Provider Orthopaedic Surgery Foot and Ankle Surgery
PROC: 0SRD0JZ Replacement of Left Knee Joint with Synthetic Substitute, Open Approach (ICD-10-PCS; CPT 27447; principal; 2024-10-19 08:45)
DX: M17.12 Unilateral primary osteoarthritis, left knee (principal); M21.162 Varus deformity, not elsewhere classified, left knee; G89.18 Other acute postprocedural pain; I10 Essential (primary) hypertension; E66.9 Obesity, unspecified; Z68.41 Body mass index [BMI] 40.0-44.9, adult; M25.762 Osteophyte, left knee
CPT/HCPCS: 27447; 20985; 36415; 64450; 73560; 85014; 85018; 93005; 93010; 94660; 97110; 97116; 97162; 97530; C1776; A9270; C1713; J0666; J0690; J1100; J1171; J2250; J2405; J2704; J3010; J3490

== ENCOUNTER 2025-02-08 07:48 | Day surgery (SDC) | payer OTHER, SELFPAY ==
[2024-10-19 18:26] VITALS: BMI 41.1
[2025-01-27 08:34] VITALS: BMI 41.1
[2025-02-08] VITALS (17 sets, daily range): BP systolic 86–131; BP diastolic 50–77; PULSE 58–83; RESP 11–27; TEMP 35.7–36.9; O2SAT 90–97; BMI 41.1
--- NOTE | 2025-02-08 06:00 | DI.RAD.S_ITS ---
PROCEDURE: XR KNEE RT 1TO2V INDICATIONS: TKA TECHNIQUE: 2 view(s) of the knee acquired. COMPARISON: [facility], CR, XR KNEE LT 1TO2V, 10/19/2024, 11:22. FINDINGS: Bones: Patient is status post knee joint arthroplasty. Hardware components are in expected positions. Visualized bony structures are intact. Soft tissues: Overlying postoperative changes are noted. IMPRESSION: Expected post-operative appearance of a knee arthroplasty. Dictated by: Portillo Treviño M.D. on 02/08/2025 at 15:41 Approved by: Portillo Treviño M.D. on 02/08/2025 at 15:41
[2025-02-08] MEDS: ACETAMINOPHEN 325 MG TABLET 975 MG PO (09:29)
[2025-02-08] MEDS: CELECOXIB 200 MG CAPSULE 400 MG PO (09:30)
[2025-02-08] MEDS: GABAPENTIN 600 MG TABLET PO (09:30)
[2025-02-08] MEDS: LACTATED RINGERS 1,000 ML 42 ML IV ×3 (09:32→15:01)
--- NOTE | 2025-02-08 11:08 | PM.PREOP ---
Pre-operative Note Interval Note History & Physical reviewed/Exam performed by Physician: Yes Changes to H&P: No
--- NOTE | 2025-02-08 12:04 | PM.OP.1 ---
Operative Date/Time/Diagnoses Date of procedure: 02/08/25 Time of procedure: 12:04 Pre-op diagnosis: Right knee arthritis BMI 41 Post-op diagnosis: same Procedure & Clinicians Procedure: Total knee arthroplasty, right CPT code 79509 Robotic assisted surgery [id number] Computer navigation assisted surgery 16669 Modifier 22 utilized in this procedure for patient morbid obesity BMI greater than 40---due to large habitus and severe arthrosis the patient required additional assistance in positioning and tissue mobilizationsand additional time and depth of dissection taking approximally twice as long as a standard total knee replacement. Same procedure(s) as scheduled: Yes Indications: The patient is a 64yo with end-stage [id number] knee arthritis. The patient has a significant bilateral varus knee arthritis. They have failed conservative treatment with activity modifications, injections, physical therapy and bracing. They has been indicated for total knee replacement. The risks and benefits of the procedure have been discussed with the patient even opportunity to ask questions. The risks of surgery include but are not limited to infection, malunion, nonunion, fracture, loosening, persistence of pain, damage to nerves and blood vessels, need for additional procedures, DVT, PE, cardiopulmonary complications and . The patient expressed a thorough understanding of the risks and benefits of surgery and has elected to proceed. Consent was signed in the office. During the operation the services of physician operating room surgical technician were medically indicated and necessary to provide the exposure of the operative site for the surgical procedure and to maintain the limb in a proper position to carry out the procedure safely and efficiently. Without a qualified assistant customer service manager being present this would extend the operative procedure and would have made the procedure more technically difficult to perform. The operating room surgical technician was medically necessary for the proper positioning, retraction and manipulation of the limb, proper exposure, and manipulation of the tissue for implantation implants and closure. Surgeon: Chari Cook [employer] Cutter: Semaj Jones Anesthesia Type: General, Spinal and Local Operative Notes Findings: End-stage varus knee arthritis right large osteophytes. Closure Type: primary Specimen(s): none sent Prosthetic devices, grafts, tissues, transplants, or devices: Mclean and Nephew journey 2 bcs Femur Oxinium 7 Tibia 7 Poly 9mm Patella 35x 7.5 Applied: implant(s) Estimated Blood Loss (mL): 300 Blood products transfused: none Tourniquet time (min): 110 Procedure in detail: Patient was seen in the preoperative area where the patient and site of surgery were identified in the operative knee was marked informed consent confirmed. This was the right knee. Patient received the appropriate preoperative antibiotics this was 3 g of Ancef. And other preoperative medications and was taken to the operating room placed on operating table in the supine position. Spinal anesthetic were administered. The operative extremity was then prepped and draped in the standard sterile fashion with a nonsterile tourniquet high on the thigh. Patient was placed on the green foam bolsters. A lateral post was placed at the level of the proximal thigh /trochanter area as a lateral post. Formal time-out procedure was performed confirming the patient's side and site of surgery and administration of appropriate preoperative antibiotics and implants were in the room accounted for. All were in agreement. Patient received a preoperative dose of tranexamic acid and then a 2nd dose at tourniquet release Patient was prepped and draped in the standard sterile fashion and the foot was placed into the leg de la paz. This was taken into high flexion and the incision was marked out over the anterior knee to the level of the medial tubercle tubercle. The Esmarch was then used for exsanguination and the tourniquet was inflated to 250 mmHg. Was made through the skin and subcutaneous tissue in high flexion this was then brought down into 30? of flexion for the medial parapatellar arthrotomy. A marker pen was used to staci the arthrotomy site for later repair. Joint fluid was evacuated. The anterior osteophytes and soft tissues were removed. Routine medial release was initially made along the medial proximal tibia with Bovie. The patella was 1st cut using the saw sized and prepped and then subluxed throughout the case and protected. The leg was then taken into extension and the patella was everted and the patella was cut to accommodate the patellar button. This was sized to a 35mm button for a 7.5 mm thickness to recreate the original dimensions of the patella. Poly was removed and the protector replaced and the patella was subluxed and the knee was taken back up into flexion and attention was returned to the femur. Then the rotational landmarks of Whitesides line and the trans epicondylar axis were marked on the femur with electrocautery. ACL and PCL were released. Then the Cori robotic pins were placed into the femur and tibia and the race set up. Landmarks were established and the robotic planning was commenced. Plan was developed and improved and adjusted as necessary to create a balanced knee. Starting alignment was 5? varus this was planned and balanced to goal of 2-3 degrees of varus this was completed by modifications to the plan. Knee was balanced using 4 ? of external rotation in the distal femur. And 3? of flexion. Initial 2 mm were taken off the distal femur for the flexion contracture--an additional 1 degree of varus was placed into the tibia and 2? of varus in the distal femur. Adjustments were made to balance the knee to 1-2 mm in flexion and extension in both medial and lateral compartments. Plan was satisfactory the bur was used to remove the distal femur then the tibia cut was completed in alignment with the robotic planning. The extension block was placed in was tight in extension and flexion so 1 more mm was taken off the tibia using the bur all feature. After this the block fit nicely with full extension obtained. Attention was then returned to the femur. Then the 5 in 1 cutting block was applied complete the femur cuts. The trials were placed. And the femoral notch was cut a standard fashion using Reamer then slap hammer. The knee was trialed and the checked. Knee was balanced in flexion extension. Range of motion 0-135 degrees was obtained. The rotation femoral trial was marked Bovie on the bone and checked with a long hany. The tibia was then finished with a drill and flange cut and then The trial implants were removed. Then in extension the posterior capsule was injected with a mixture of 40 mL of 0.25% Marcaine and 20 mL of 266 mg Exparel care to avoid excessive injection posterior laterally. The remainder of this was saved for the capsule and subcutaneous tissue and placed during cement curing. The wound and bone was irrigated with pulsatile lavage. This was then dried with a sponge. The components were verified and opened and the cement was mixed. Cement was applied to the components and then to the bone then the tibia was cemented in place 1st followed by the femur then the patella. Excess cement was removed. With care looking around the back of the knee. Remainder of the injection was injected around the capsule. trial poly was placed back in the leg was placed into extension for the patellar cementing. After this was cured approximately 15 minutes later and the dilute Betadine solution was placed for at least 3 minutes in the wound this was then irrigated out and the final poly was placed. This was a 9 mm poly. The tourniquet was released hemostasis was achieved. There were 2 small muscular bleeders once in the fat pad and 1 from the vastus these were cauterized with the Bovie. Final 1g of tranexamic acid was given IV at the time of tourniquet release. The capsule was closed with 1. Ethibond suture. Followed by a running Quill stitch. Subcutaneous layer was closed with 3-0 Vicryl suture. Skin was closed with a running V lock suture Stratafix Monocryl type suture and Dermabond. An Aquacel dressing was placed . An Newton wrap was applied. Anesthetic was terminated the patient was woken from anesthesia and taken to recovery room in good condition. There no immediate complications from this procedure. The patient will be maintained on a standard total knee replacement protocol with weight-bearing as tolerated. Complications: none Post-operative Condition: stable Disposition: PACU Plan for aftercare: Standard postoperative knee protocol weightbear as tolerated immediate range of motion. Aquacel dressing will stay in place until follow up. Aspirin 81 mg b.i.d. for DVT prophylaxis for 6 weeks. Follow up in Orthopedic Clinic in 2 weeks. Commence physical therapy within 1 week.
--- NOTE | 2025-02-08 12:06 | SUR.PREOP ---
time out performed by Dr Quiroz and this RN. Block start time [1135] . Monitoring initiated and maintained throughout procedure. Oxygen and medications given per anesthesiologist. Patient remained stable throughout procedure, no adverse reactions noted. Block end time [1138].
[2025-02-08] MEDS: CEFAZOLIN VIAL 3 GM in SODIUM CHLORIDE 0.9% 100 ML IV ×2 (12:15→20:25)
[2025-02-08] MEDS: TRANEXAMIC ACID 1,000 MG VIAL 1000 MG INJ ×2 (12:34→14:26)
[2025-02-08] MEDS: BUPIVACAINE LIPOSOME 266 MG/20 ML VIAL INJ (12:43)
[2025-02-08] MEDS: BUPIVACAINE 0.25% W/ EPI 30 ML VIAL 60 ML INJ (12:43)
--- NOTE | 2025-02-08 12:59 | SUR.OPER ---
Supine on padded OR bed. Pillow under head, arms secured on padded armboards <90 degree abduction. Safety belt across torso. Non-operative leg secured with tape over blanket over lower leg. Operative leg secured in DeMayo/Jamir/Nathe positioner. Foam padded brace at thigh of operative leg. PA and surgeon in to assist with positioning and approve final position. All pressure points padded and protected.
[2025-02-08] MEDS: HYDROMORPHONE 2 MG TABLET PO (15:43)
[2025-02-08] MEDS: LACTATED RINGERS 1,000 ML 100 ML IV (16:31)
[2025-02-08] MEDS: ACETAMINOPHEN 325 MG TABLET 650 MG PO ×2 (16:35→22:07)
[2025-02-08] MEDS: HYDROMORPHONE 2 MG TABLET 4 MG PO ×2 (16:36→20:24)
[2025-02-08] MEDS: BUDESONIDE 0.5 MG/2 ML NEB INH (19:42)
[2025-02-08] MEDS: DOCUSATE 100 MG CAPSULE PO (20:23)
[2025-02-08] MEDS: ASPIRIN EC 81 MG TABLET PO (20:24)
[2025-02-08] MEDS: PANTOPRAZOLE DR 40 MG TABLET PO (20:24)
[2025-02-08] MEDS: OXYBUTYNIN 5 MG ER TAB 20 MG PO (20:24)
[2025-02-08] MEDS: TAMSULOSIN 0.4 MG CAPSULE 0.8 MG PO (20:24)
[2025-02-08] MEDS: PREGABALIN 75 MG CAPSULE 300 MG PO (20:24)
[2025-02-08] MEDS: NORTRIPTYLINE HCL 25 MG CAPSULE 75 MG PO (20:24)
[2025-02-08] MEDS: LATANOPROST 0.005% OPHTH 2.5 ML 1 DROPS EYE-BOTH (20:25)
--- NOTE | 2025-02-08 23:57 | PC.NURSE ---
Patient is alert and oriented. Breath sounds CTA with RA sat of 92%. HRR. Denied nausea. BT present but has not yet started passing flatus. Incontinent of urine at shift change and states he leaks urine whenever he coughs. Is able to turn himself in bed. Remains numb in right LE from knee to toes so has not yet been out of bed to assess mobility. CMS is intact otherwise. Wearing bilateral calf SCD's. Denies any right LE pain but has chronic low back pain for which he has been requesting po Dilaudid. States his pain is most often 7-8/10 and describes it as sharp. Aquacel dressing to right knee is covered with rohit wrap; CDI. Fall risk score is high and bed alarm is activated.
[2025-02-09] MEDS: HYDROMORPHONE 2 MG TABLET 4 MG PO ×3 (01:04→09:40)
[2025-02-09 01:15] VITALS: BP 94/54; PULSE 92; RESP 18; TEMP 36.2; O2SAT 94
[2025-02-09] MEDS: LACTATED RINGERS 1,000 ML 100 ML IV (02:49)
[2025-02-09] MEDS: CEFAZOLIN VIAL 3 GM in SODIUM CHLORIDE 0.9% 100 ML IV (04:08)
[2025-02-09 05:41] LABS: Hematocrit 35.7 % (41-53); Hemoglobin 11.9 g/dL (13.5-17.5)
--- NOTE | 2025-02-09 07:03 | P.DS_ITS ---
History of Present Illness History of Present Illness Date Patient Seen: 02/09/25 Time Patient Seen: 07:03 Chief complaint: Right Total Knee Arthroplasty - Robot Narrative: Postop day 1 right total knee arthroplasty. Doing well. Pain controlled. Very complimentary and happy with results so far. Expresses thanks for surgery. Denies fevers or chills. Using hydromorphone for pain control tolerating oral medications. Discharge Providers Provider Date of admission: 02/08/2025 Discharge Date: 02/09/25 Primary care physician: Ivon Frankel MD Consults: 02/08/25 16:22 Consult to Discharge Planning Routine Comment: Consult to Occupational Therapy Evaluate & Treat Comment: Physician Instructions: Evaluate and treat Consult to Physical Therapy Evaluate & Treat Comment: Physician Instructions: postop TKA protocol Discharge provider: Chari Cook MD Summary Hospital Course Discharge Diagnosis: Right knee arthritis Hospital Course: Patient was admitted to the unit post surgery from right total knee replacement. On the stallworth he had IV and oral medication for pain control was weaned to oral medication. Tolerated oral diet. Vital signs were stable and patient was appropriate for discharge on postoperative day 1. Status at Discharge Cognitive/behavioral status at discharge: oriented Functional status at discharge: uses cane/walker Overall status at discharge: patient is progressing back to baseline Time Spent with Patient Time spent: Less than 30 minutes Exam Vital Signs (past 8 hours): - 02/09/25 01:15 Temperature 97.2 F L Pulse Rate 92 H Respiratory Rate 18 Blood Pressure 94/54 L Pulse Oximetry 94 Oxygen Flow Rate 0 Oxygen Delivery Method Room Air Oxygen Flow Rate 0 Narrative Exam Narrative: Alert and oriented no acute distress lying in bed conversational HEENT normocephalic atraumatic Heart regular rate and rhythm Lungs labored breathing on room air Right lower extremity with Newton wrap on knee demonstrate straight leg raise quadriceps functioning. Demonstrates dorsiflexion plantar flexion. Calf soft, SCDs on. Is able to flex his knee up to 90?. Palpable dorsalis pedis pulse. Left knee with previous total knee arthroplasty scar intact normal range of motion. Objective Labs 02/09/25 04:50 Labs: Laboratory Results - last 24 hr 02/09/25 04:50 Hgb 11.9 L Hct 35.7 L PFSH Medical History Thoracic aortic aneurysm Hearing loss Neuropathy GIB (gastrointestinal bleeding) GERD (gastroesophageal reflux disease) Sarcoidosis HLD (hyperlipidemia) History of migraine headaches HTN (hypertension) PTSD (post-traumatic stress disorder) Depression Mcclain esophagus Urinary incontinence TRACY (obstructive sleep apnea) Asthma Surgical History (Updated 01/27/25 @ 08:56 by Yajaira Carranza RN) History of total left knee replacement History of total replacement of left shoulder joint (05/19/24) History of surgery (07/28/24) History of lumbar fusion History of cholecystectomy History of appendectomy History of tonsillectomy H/O hernia repair H/O cataract extraction History of loop recorder History of arthroplasty of right shoulder (2023) Social History household members: spouse Smoking Status: Former smoker alcohol intake: current Discharge Assessment & Plan Assessment and Plan Assessment: Right knee arthritis status post total knee replacement stable condition. Appropriate for discharge home. Plan of Treatment: Weightbear as tolerated right lower extremity. He was assistive devices walker for safe ambulation. Knee range of motion. Start physical therapy within 1 week. Aspirin 81 mg b.i.d. for DVT prophylaxis for 6 weeks. Follow up in Orthopedic Clinic in 2 weeks. Discharge Plan Discharge Plan Patient Disposition: Home Discharge orders & Medications Discharge Orders: Discharge (Order); Ordered 02/09/25 Ordered By: Chari Cook Prescriptions: New hydromorphone 2 mg tablet 2 mg PO Q4H PRN (Reason: pain) Qty: 40 0RF Rx Instructions: postop exempt ondansetron 4 mg tablet,disintegrating 4 mg PO Q8H PRN (Reason: nausea and vomiting) Qty: 5 1RF Continued cyclobenzaprine 10 mg Tablet 10 mg PO BEDTIME PRN (Reason: Muscle Spasm) pregabalin 300 mg capsule 300 mg PO BID atenolol 50 mg Tablet 50 mg PO DAILY latanoprost 0.005 % Drops 1 drp EYE-BOTH BEDTIME atorvastatin 40 mg Tablet 40 mg PO DAILY potassium chloride 10 mEq Capsule, Extended Release 30 meq PO DAILY acetaminophen [Tylenol] 325 mg Tablet 650 mg PO Q6H PRN (Reason: Pain (Scale Score 4-6)) oxybutynin chloride 10 mg Tablet Extended Release 24hr 20 mg PO BEDTIME docusate sodium 50 mg Capsule 100 mg PO BEDTIME tamsulosin 0.4 mg Capsule 0.8 mg PO BEDTIME carboxymethylcellulose sodium 0.5 % Drops 1 drp EYE-BOTH QID PRN (Reason: Dry Eyes) pantoprazole 40 mg Tablet,Delayed Release (Dr/Ec) 40 mg PO BID lidocaine 5 % Adhesive Patch,Medicated 1 patch TOPICAL DAILY PRN (Reason: Pain) Rx Instructions: leave on most painful area for up to 12 hrs polyethylene glycol 3350 17 gram/dose Powder 17 g PO DAILY albuterol sulfate 90 mcg/actuation Hfa Aerosol Inhaler 2 puff INHALATION Q6H PRN (Reason: SOB) diphenhydramine-acetaminophen [Tylenol PM Extra Strength] 25-500 mg Tablet 2 tab PO BEDTIME PRN (Reason: Pain (Scale Score 4-6)) nortriptyline 50 mg Capsule 75 mg PO BEDTIME cholecalciferol (vitamin D3) [Vitamin D3] 25 mcg (1,000 unit) Capsule 25 mcg PO DAILY duloxetine 60 mg Capsule,Delayed Release(Dr/Ec) 120 mg PO DAILY mometasone 100 mcg/actuation Hfa Aerosol Inhaler 2 puff INHALATION BID erenumab-aooe 70 mg/mL Auto-Injector 70 mg SUBCUT QMONTH alpha lipoic acid 300 mg capsule 300 mg PO TID Follow up/Referrals: Ivon Frankel MD [Primary Care Provider, Internal Medicine] Diet/Activity/Treatments Diet: Diet as Tolerated Other treatments: Dressing/Wound care: -Remove the Newton wrap 48 hours after surgery. -Keep Aquacell dressing in place until postoperative follow-up office visit. -you may see some drainage on the bandage, this is ok. If it is leaking or saturated, then the dressing can be changed to clean gauze or a clean surgical dressing from a pharmacy or reinforced with additional gauze and paper tape or dressings over the top. Otherwise, just keep dressing in place until follow up. -Okay to shower. Keep wound out of direct water stream. No soaking or submerging until all the scabs fall off (approximately 6 weeks). -Please call the office if dressing becomes significantly wet, soiled, or saturated. Activities: -Weight-bearing as tolerated. Use front wheeled walker, and progress to cane when safe. -Continue with home exercises as directed by your physical therapist. -Elevate ?toes above the nose if you have significant swelling in your lower leg. (A wedge pillow is easiest.) -Ice your incision as needed for pain/inflammation/swelling. Protect your skin with a folded pillowcase. Follow-up: -Follow-up with your surgeon or PA in the office in 10-14 days after surgery. -Follow-up with your surgeon 6 weeks postoperatively. Call the office if you have chest pain, shortness of breath, significant swelling that will not resolve with elevating, fever over 101?, significantly worsening pain. [facility]: [phone] You have been discharged with medications. These have already been sent to your pharmacy. Pain include pain medications: Oxycodone take 5 mg orally every 4 hours as needed for pain. If your pain is more severe you may take up to 2 or a maximum 3 pills (15 mg) every 4 hours for pain. Take the smallest dose necessary. Or you may have been given a prescription for hydromorphone 2 mg orally every 4 hours as needed for pain. May take a maximum of 2 pills or 4 mg every 4 hours for pain but take the smallest dose necessary. Narcotic medication can make you feel constipated. You can get [id number] stool softener such as docusate sodium-Colace at a pharmacy to help with this. You also have prescriptions for ibuprofen 800 mg take this 3 times a day for least the 1st 10 days after surgery to help with pain control. And acetaminophen (Tylenol) take 500-1000 mg 3 times a day for pain control. You also have a prescription for Zofran (ondansetron) this is a strong anti nausea medication that can be taken up to every 8 hours as needed for nausea Additionally will take a baby aspirin 81 mg twice a day (morning and night) to help prevent blood clots If you have been discharged with ketorolac (toradol) this is a strong anti- inflammatory, do not take ibuprofen/meloxicam/mortin or other NSAIDS while on ketorolac. Once your ketorolac prescription is finished, you may restart taking other NSAIDs again. narcotic pain medication, tylenol and aspirin are fine to continue while on ketorolac. Skin/Wound/Dressing Care Report to your healthcare provider any signs of infection, such as:: chills, fever, night sweats, increased pain, unusual drainage and unusual redness Visit Report/Discharge Packet Instructions: DI for Knee Replacement, DI for Prescription Opioid Use Stand Alone Forms: Patient Portal/API Print Language: [place] Discharge Data Primary Care Provider: Ivon Frankel Attending Provider: Chari Cook VTE Deep Vein Thrombosis/Pulmonary Embolism Present on Admission: No
--- NOTE | 2025-02-09 08:10 | PC.NURSE ---
Upon shift assessment, pt reports numbness from R knee down to toes. Can feel pressure, but not sensation. Able to lift and move leg as a whole. Informed MD Cook via phone, no new orders at this time. Awaiting PT/OT assessment.
[2025-02-09 08:24] VITALS: BP 98/62; PULSE 92; RESP 18; TEMP 36.6; O2SAT 91
--- NOTE | 2025-02-09 09:25 | OT.IP.EVAL ---
Current Diagnoses Unilateral primary osteoarthritis, right knee (02/08/25) Surgery Performed Operation Date: 02/08/25 10:30 Actual Procedures p Total Knee Arthroplasty - Robot(Right) - Chari Cook MD Past Medical History (Last Reviewed 02/09/25 @ 07:06 by Chari Cook MD) Asthma Mcclain esophagus Depression GERD (gastroesophageal reflux disease) GIB (gastrointestinal bleeding) Hearing loss History of migraine headaches HLD (hyperlipidemia) HTN (hypertension) Neuropathy TRACY (obstructive sleep apnea) PTSD (post-traumatic stress disorder) Sarcoidosis Thoracic aortic aneurysm Urinary incontinence Surgical History (Last Updated 01/27/25 @ 08:56 by Yajaira Carranza RN) H/O cataract extraction H/O hernia repair History of appendectomy History of arthroplasty of right shoulder (2023) History of cholecystectomy History of loop recorder History of lumbar fusion History of surgery (07/28/24) History of tonsillectomy History of total left knee replacement History of total replacement of left shoulder joint (05/19/24) Occupational Therapy Inpatient Evaluation/Re-Eval M1 PT/OT-IP Prior Functional Status Start: 02/09/25 09:25 Freq: NEEDED Status: Active Protocol: Document 02/09/25 09:25 [facility] (Rec: 02/09/25 09:37 [facility] Desktop) Medical Review Prior Functional Status Communication I Mobility and Gait Pt used a SPC or wc for longer distances. Activities of Daily Pt's assisted with LB dressing, meds, and IADl Living and IADL's needs Social History Household Members spouse Living Arrangements House Number of Floors ( One Floor Floors) Number of Stairs To 5 steps with bilateral rails to enter. Enter/Railing? Home Environment Standard Height Toilet,Walk in Shower Home Equipment Front Wheel Walker,Straight Cane,Manual Wheelchair, Shower Seat with Backrest,Hand Held Shower,Grab Bars In Shower M2 OT-IP Current Condition Start: 02/09/25 09:25 Freq: Status: Active Protocol: Document 02/09/25 09:25 [facility] (Rec: 02/09/25 09:37 [facility] Desktop) Occupational Therapy Current Condition Current Condition Evaluation Date 02/09/25 Treatment Diagnosis S/P R TKA Diagnosis Onset Date 02/08/25 Weight Bearing Status Weight Bearing Weight Bear as Tolerated Status M3 OT- IP Subjective and Pain Start: 02/09/25 09:25 Freq: Status: Active Protocol: Document 02/09/25 09:25 [facility] (Rec: 02/09/25 09:37 [facility] Desktop) OT- Subjective Occupational Therapy Visit Type Type Initial Evaluation Visit Start Time 08:55 Visit Stop Time 09:25 Occupational Therapy Visit Comments Patient Comments Pt agreed to get dressed and do the steps. Patient/Caregiver TO go home. Goals OT Pain Assessment Pain When Pain Assessed During Mobility Pain Present Pain Present Pain Reported Location right knee Intensity 9 Scale Used Numeric (0 - 10) M4 OT- IP ADL's Start: 02/09/25 09:25 Freq: Status: Active Protocol: Document 02/09/25 09:25 [facility] (Rec: 02/09/25 09:37 [facility] Desktop) OT [id number] Comments OT Self-Feeding Not at meal time. Comments OT ADL-Grooming Comments OT Grooming Comments Not observed. Pt states washed his face prior. OT ADL-Oral Care Comments Oral Care Comments Not observed. OT ADL-Dressing General Eval Upper Body Dressing Independent Ability Lower Body Dressing Maximum Assistance Ability Areas Needing Socks,Shoes Assistance Comments OT Dressing Comments Pt able to practice use of audio/video technician for brief and shorts . Educated to dress the LLE first and take out last. OT ADL-Toileting Comments OT Toileting Pt has a BSC a home to use. Comments OT ADL-Bathing Comments OT Bathing Comments Not performed. M5 OT- IP IADL's Start: 02/09/25 09:25 Freq: Status: Active Protocol: Document 02/09/25 09:25 [facility] (Rec: 02/09/25 09:37 [facility] Desktop) OT-Instrumental Activities of Daily Living Home Safety Awareness Awareness of Need Good Awareness for Assistance at Home Medication Management Medication Caregiver Administers Management Money Management Money Management Caregiver Provides Supervision Meal Preparation Meal Preparation Caregiver Provides Assist Admitting Counselor Admitting Counselor Caregiver Provides Assist M6 OT- IP Functional Cognition Start: 02/09/25 09:25 Freq: Status: Active Protocol: Document 02/09/25 09:25 [facility] (Rec: 02/09/25 09:37 [facility] Desktop) Cognitive Factors Limiting Selfcare Function Cognitive Ability Level of Alertness Alert Patient Orientation Name,Place,Situation Attention Span Capable of Focused Attention,Capable of Sustained Ability Attention Ability to Follow Able to Follow One Step Commands Commands Cognitive Comments Cognitive Assessment Pt needing vc to push up from the bed and not grab the Comments FWW to stand. Also to reach back to the armrest to sit as well. M7 OT- IP Mobility and Balance Start: 02/09/25 09:25 Freq: Status: Active Protocol: Document 02/09/25 09:25 [facility] (Rec: 02/09/25 09:37 [facility] Desktop) OT-Transfer Assessment Sit to and From Stand Sit to and from Standby Assistance,Contact Guard Assistance Stand Transfers Transfer Ability Standby Assistance,Contact Guard Assistance Technique Transfer Destination Bed,Wheelchair Devices Transfer Assistive Gait Belt,Front Wheeled Walker Devices Comments Mobility Comments CGA to SBA for mobility needs to stand and sit down. OT- Balance Assessment Sitting Balance and Reactions Static Sitting Normal Balance Ability Dynamic Sitting Good Balance Ability Standing Balance and Reactions Static Standing Fair Balance Ability Dynamic Standing Fair Balance Ability M8 OT- IP Objective Assessments Start: 02/09/25 09:25 Freq: Status: Active Protocol: Document 02/09/25 09:25 [facility] (Rec: 02/09/25 09:37 [facility] Desktop) OT Gross Range of Motion Upper Extremity Range of Motion Assessment Left Impaired OT Strength Upper Extremity Strength Assessment Left Impaired M9 OT- IP Assessment and Plan Start: 02/09/25 09:25 Freq: Status: Active Protocol: Document 02/09/25 09:25 [facility] (Rec: 02/09/25 09:37 [facility] Desktop) OT Summary Assessment and Plan Potential Rehabilitation Excellent Potential Analytic Complexity Low at Evaluation Summary OT Impairments Pain,Range of Motion,Strength,Balance,Functional Mobility,Dressing,Toileting,Bathing,Toilet Transfers, Shower Transfers Progress Towards Progressing Toward Goals Goals Assessment Summary Pt main barriers are pain and vc to safety awareness. Pt's present for caregiver training for ADL and mobility and able to show good demonstration and safety to assist the pt. Pt to go home with assist and attend outpt PT. Goals Grooming Goal Independent Dressing Goal Minimal Assistance,It Operations Specialist Toileting Goal Independent Bathing Goal Standby Assistance Toilet Transfer Goal Independent Shower Transfer Goal Standby Assistance Days to Meet Goals 3 Treatment Plan OT Treatment Plan ADL Training,Functional Mobility,Patient/Family Education,Discharge Planning Discharge Recommendations OT Discharge Home with Assistance,Outpatient PT Recommendations Transportation Needs Private Vehicle at Discharge
[2025-02-09] MEDS: DULOXETINE 30 MG CAPSULE 120 MG PO (09:41)
[2025-02-09] MEDS: PREGABALIN 75 MG CAPSULE 300 MG PO (09:42)
--- NOTE | 2025-02-09 09:43 | PT.IIE ---
Current Diagnoses Unilateral primary osteoarthritis, right knee (02/08/25) Surgery Performed Operation Date: 02/08/25 10:30 Actual Procedures p Total Knee Arthroplasty - Robot(Right) - Chari Cook MD Surgical History (Last Updated 01/27/25 @ 08:56 by Yajaira Carranza RN) H/O cataract extraction H/O hernia repair History of appendectomy History of arthroplasty of right shoulder (2023) History of cholecystectomy History of loop recorder History of lumbar fusion History of surgery (07/28/24) History of tonsillectomy History of total left knee replacement History of total replacement of left shoulder joint (05/19/24) Medical History (Last Reviewed 02/09/25 @ 07:06 by Chari Cook MD) Asthma Mcclain esophagus Depression GERD (gastroesophageal reflux disease) GIB (gastrointestinal bleeding) Hearing loss History of migraine headaches HLD (hyperlipidemia) HTN (hypertension) Neuropathy TRACY (obstructive sleep apnea) PTSD (post-traumatic stress disorder) Sarcoidosis Thoracic aortic aneurysm Urinary incontinence Physical Therapy Inpatient Evaluation/Re-Eval M1 PT/OT-IP Prior Functional Status Start: 02/09/25 09:25 Freq: NEEDED Status: Active Protocol: Document 02/09/25 09:25 CCC (Rec: 02/09/25 09:37 CCC Desktop) Medical Review Prior Functional Status Communication I Mobility and Gait Pt used a SPC or wc for longer distances. Activities of Daily Pt's assisted with LB dressing, meds, and IADl Living and IADL's needs Social History Household Members spouse Living Arrangements House Number of Floors ( One Floor Floors) Number of Stairs To 5 steps with bilateral rails to enter. Enter/Railing? Home Environment Standard Height Toilet,Walk in Shower Home Equipment Front Wheel Walker,Straight Cane,Manual Wheelchair, Shower Seat with Backrest,Hand Held Shower,Grab Bars In Shower M1 PT/OT-IP Prior Functional Status Start: 02/09/25 09:33 Freq: NEEDED Status: Active Protocol: Document 02/09/25 08:54 MB (Rec: 02/09/25 09:43 MB Desktop) Medical Review Prior Functional Status Medical History Yes Reviewed Diet/Fluid Regular Consistency Communication MOHEGAN Mobility and Gait Mod I with RW for short distances and pushes him in w/c for longer distances Activities of Daily assists for all ADLs Living and IADL's Social History Household Members spouse Living Arrangements House Number of Floors ( One Floor Floors) Number of Stairs To 5 steps with two rails to enter Enter/Railing? Home Environment Standard Height Toilet,Walk in Shower Home Equipment Front Wheel Walker,Manual Wheelchair,Shower Seat with Backrest,Hand Held Shower,Grab Bars In Shower Employment Status Retired M2 PT-IP Current Condition Start: 02/09/25 09:33 Freq: NEEDED Status: Active Protocol: Document 02/09/25 08:54 MB (Rec: 02/09/25 09:43 MB Desktop) Physical Therapy Current Condition Current Condition Evaluation Date 02/09/25 Treatment Diagnosis Right TKR M3 PT-IP Subjective Start: 02/09/25 09:33 Freq: NEEDED Status: Active Protocol: Document 02/09/25 08:54 MB (Rec: 02/09/25 09:43 MB Desktop) Subjective Physical Therapy Visit Type Type Initial Evaluation Visit Start Time 08:54 Visit Stop Time 09:25 Number of BUILDING MAINTENANCE TECHNICIAN Visits 0 Physical Therapy Visit Comments Patient Comments Pt is agreeable to PT. Therapy Pain Assessment Pain When Pain Assessed At Rest Pain Present Pain Present Pain Reported Location right knee Intensity 8 Scale Used Numeric (0 - 10) M4 PT-IP Mobility and Gait Start: 02/09/25 09:33 Freq: NEEDED Status: Active Protocol: Document 02/09/25 08:54 MB (Rec: 02/09/25 09:43 MB Desktop) PT-Bed Mobility Assessment Supine to Sit Supine to Sit Independent Scooting Scooting to Edge of Independent Bed PT-Transfer Assessment Sit to and From Stand Sit to and from Standby Assistance,Contact Guard Assistance,1 Person Stand Assistance,Use of Upper Extremities Equipment Transfer Assistive Gait Belt,Front Wheeled Walker Device Transfers Transfer Destination Chair Transfer Technique Ambulation Transfer Ability Level of Assist Standby Assistance,Contact Guard Assistance,1 Person Assistance,Use of Upper Extremities Comments Mobility Comments Cues each transfer to push up and reach back for bed, chair and w/c. Pt performs many transfers during assessment Gait Assessment Gait Gait Assistance Standby Assistance Required: Distance (Feet) 100 Able to Maintain Yes Weight Bearing Status During Gait Assistive Devices Assistive Device Gait Belt,Front Wheeled Walker Gait Deviations General Gait Pattern Antalgic,Decreased Stride Length,Decreased Feet Clearance,Flexed Trunk,Step-to Gait Factors Limiting Gait Function Factors Limiting Decreased Strength,Difficulty Following Directions, Gait Function Limited Range of Motion,Pain Comments Gait Comments 100'x1, 5'x2, 20'x1 Stair Climbing Assessment Evaluation Level of Assist On Contact Guard Assistance Stairs Devices Stair Climbing Right Railing Assistive Devices Technique/Endurance Stair Climbing Ascend and Descend Direction Stair Climbing Step to Step Technique Number of Steps 3 Climbed Query Text: Stair Climbing Set # 1 Repetitions (reps) Comments Stair Climbing Pt facing left rail and both hands on rail, step-to Comments step up with left foot and then right foot PT-Balance Assessment Sitting Balance and Reactions Static Sitting Normal Balance Ability Dynamic Sitting Good Balance Ability Standing Balance and Reactions Static Standing Good Balance Ability Dynamic Standing Good Balance Ability Device Used RW M5 PT-IP Objective Assessments Start: 02/09/25 09:33 Freq: NEEDED Status: Active Protocol: Document 02/09/25 08:54 MB (Rec: 02/09/25 09:43 MB Desktop) Orientation Orientation/Cognition Level of Alertness Alert Language Function Hard of Hearing Ability Safety Awareness Decreased Safety Awareness Memory Description No Deficits Noted Gross Range of Motion Upper Extremity ROM Impairments Defer to OT Lower Extremity ROM Assessment Right Impaired Strength Lower Extremity Strength Assessment Right Impaired Comments Strength Comments Right knee 5-85 deg range this a.m. Coordination Assessment Gross Coordination Gross Coordination Impaired Sensation Assessment Comments Sensation Comments NT M6 PT-IP Treatment Start: 02/09/25 09:33 Freq: NEEDED Status: Active Protocol: Document 02/09/25 08:54 MB (Rec: 02/09/25 09:43 MB Desktop) Physical Therapy Treatment Education Education Provided Post-Op Packet M7 PT-IP Assessment and Plan Start: 02/09/25 09:33 Freq: NEEDED Status: Active Protocol: Document 02/09/25 08:54 MB (Rec: 02/09/25 09:43 MB Desktop) PT Summary Assessment and Plan Potential Rehabilitation Good Potential Status of Condition Evolving at Evaluation Summary Impairments Pain,ROM,Strength,Balance,Coordination,Transfers,Gait Assessment Summary Pt is a pleasant 64 y/o male POD1 right TKR. Pt's is nearby and assists him with all ADLs at home. Pt mobilizes well with gait and steps and requires cueing for hand placement for transfers. He has OPPT set-up on 02/13/25. He is aware of exercises after previous TKR. No further acute PT needs. Frequency of Treatment Frequency Of Discharge Treatment Weight Bearing Status Weight Bearing Weight Bear as Tolerated Status Recommendations To Nursing Amount of Assist 1 Person Assist Needed Discharge Recommendations PT Discharge Home with 26/01 Assist Available,Outpatient PT Recommendations Transportation Needs Private Vehicle at Discharge - PT assist x1
[2025-02-09] MEDS: POTASSIUM CHLORIDE 10 MEQ TAB 30 MEQ PO (10:32)
[2025-02-09] MEDS: CHOLECALCIFEROL (VITAMIN D3) 1,000 UNIT TABLET 1000 UNIT PO (10:33)
[2025-02-09] MEDS: ASPIRIN EC 81 MG TABLET PO (10:33)
[2025-02-09] MEDS: PANTOPRAZOLE DR 40 MG TABLET PO (10:33)
[2025-02-09] MEDS: ATORVASTATIN 20 MG TABLET 40 MG PO (10:33)
--- NOTE | 2025-02-09 10:39 | CM.DANOTE ---
Initial DCP Assessment Visit Note Reviewed EMR and team rounds for pt's medical status and updates. [facility] was unable to meet with this pt f/f due to unit triage needs. Pt lives modified independently in his own home with spouse in [place]. His spouse will transport him home later this am, as he has been medically cleared for discharge. Payor: ANATOLIY Adrian Attending: Dr. Cook Pt is a 64 year-old M post-op day 1 from a R-TKA surgery. He has a hx of multiple back, shoulder, and knee surgeries. Conservative efforts at pain control have provided limit benefit without lasting results. He was able to work with therapies and did well, was cleared for home d/c. He already has a plan for OP PT and Ortho f/u appointments. No further CM d/c needs are identified at this time. Discharge Planning/Care Management Advanced directive,confirm from FACILITY Start: 02/08/25 16:31 Freq: Q24H Status: Active Protocol: Document 02/08/25 16:31 SW (Rec: 02/08/25 17:00 [id number]) Advance Directive, confirm on record Time 17:00 Person contacted pt Copy received No CM Discharge Assessment Start: 02/08/25 07:59 Freq: Status: Active Protocol: Document 02/09/25 10:37 DPL (Rec: 02/09/25 10:39 DPL [id number]) Discharge Planning Assessment Assigned Discharge MS [place] Acrobatic Rigger Advance Directives? Yes Advance Directives No on File History Provided By Medical Record Has Patient been No admitted in last 30 days? Prior Living House Arrangements Household Members spouse Type of Drives own vehicle transporation used prior to admit Independent with ADL No: modified independent with a cane or walker 's Is patient alert and Yes oriented? Comment Dressing Caregiver for No Another DME Already Rented / Bath Bench,Elevated Toilet Seat,FWW / Walker,Cane Owned Comment 4WW Patient/Family OP PT Therapy Preference Comment No identified home d/c needs at this time. Barriers to No Discharge Discharge Plan Home Transportation Spouse Arrangement Referrals Initiated None needed Review Status In Process Please Provide Date 02/09/25 Initial DC Assessment Was Performed Pre-Anesthesia Assessment Start: 01/27/25 08:34 Freq: Status: Complete Protocol: Document 01/27/25 08:34 LB (Rec: 01/27/25 09:22 LB [id number]) Pre-Anesthesia Assessment PAC Comment 01/27/25 Phone assessment. Preferred Name Jordin Patient Information Phone Assessment Reviewed Via Assessment Completed Patient,Spouse With Diagnostic Results Other Comment 10/20/24 at . Primary Care Ivon Frankel Provider Seen Specialist in Yes Last 12 Months Specialist Seen Gelatin Maker Utility,Orthopedist,Other Primary Language Lebanese Preferred Language Lebanese Remote Broadcast Technician Required No Height 187.96 cm Weight 145.15 kg Body Mass Index (BMI 41.1 ) Hearing Ability Hearing Impaired,Use of Hearing Aid Visual Assist Glasses Barriers to Learning Auditory Other Aids No Hx Anesthesia No: Pt would like Dilaudid for pain. Reactions Hx Family Anesthesia No Reaction Hx Malignant No Hyperthermia Hx Blood Yes: GI Bleed approx 2019 Transfusions Hx Blood Transfusion Yes: Pt and unsure what the reaction was Reaction Anesthesia Review Yes: Update. Requested Film Processing Shift Supervisor No alcohol intake current Alcohol intake 1-2 drinks per day frequency Smoking Status Former smoker Tobacco type cigarettes how long ago did Quit 2001. patient quit smoking Substance Use Type [ marijuana #R] Comment Advised not to smoke marijuana 24 hours prior. Pain Present Pain Reported Comment Right knee. Musculoskeletal Back Pain,Difficulty Walking,Joint Pain Symptoms History of Falling ( Yes Recent or History of ) Patient is No completely paralyzed or completely immobile Prosthesis or Cane,Front Wheel Walker,Wheelchair Orthotic Device Mental Status Oriented to own ability Comment Will bring walker. Is patient on oxygen No ? Does patient have No JARRETT/SOB Hx Sleep Apnea Yes: Mild/borderline CPAP/BIPAP use not prescribed Comment Starts sleep study 10/28/24. Currently Taking a Yes: Atenolol 50mg daily. Beta Danielle Can You Climb a Yes Flight of Stairs Without SOB Hx Chest Pain No Hx SOB Yes Hx Syncope or Yes: Syncope s/p loop recorder - removed 07/30/24. Dizziness Anti-Coagulant No Therapy Has a Gelatin Maker Utility Yes Gelatin Maker Utility name Dr Sathya COPE. Cardiac Testing No: CTA 04/28, echo 12/28. Hx Pacemaker/ICD No Dysphagia Yes Gastrointestinal Dysphagia,Reflux Symptoms Comment Mcclain's esophagus. Chronic UTI No Urinary Catheter No Present Hx Urinary Self No Catheterization Diabetes No Hx Drug Resistant No Organism Presence of External Yes: cruz shoulder, neck fusion, hernia mesh, left knee. or Internal Medical Devices Month and year 2023 received flu vaccine Are you experiencing Shortness of breath any of these symptoms? Received a COVID Yes vaccine? Comment Denies covid last 8 weeks. Marital Status Lives With spouse Current Living House Arrangements Number of Floors ( One Floor Floors) Number of Stairs To 4 steps with railing. Enter/Railing? Support System Spouse Does the Patient Yes Have Assistance After Surgery Patient Discharge Return Home Plan Description Additional comment Advised same day surgery by surgeon. Feels Safe in Yes Current Environment Do you have thoughts None of harming yourself or others? Do You Have Any No Spiritual Beliefs That May Affect Your HC Choices? Do You Have Any No Cultural Practices That May Affect Your HC Choices? Emergency Contact Fidelina Pereira - Name Emergency Contact [phone] Phone Number Advance Directives? Yes Advance Directives No on File Power of Post Office Markup Clerk Yes Power of Post Office Markup Clerk Fidelina Pereira - Name Power of Post Office Markup Clerk [phone] Phone Number PAC Instructions Assistance for 24 hours post-op,Do not shave/clip surgical site,Durable medical equipment,Medications to take/avoid,Nasal antibiotic,No ETOH/petroleum product on skin DOS,NPO,Post-op transportation,Pre-surgical wash,Sensory aids,Sturdy shoes/comfortable clothes,Do not bring valuables and remove jewelry
[2025-02-09 10:47] VITALS: BP 98/60
[2025-02-09] MEDS: ACETAMINOPHEN 325 MG TABLET 650 MG PO (11:30)
--- NOTE | 2025-02-09 12:04 | PC.NURSE ---
PIV removed by PCT Bekah, pt tolerated well. All belongings with patient, nothing in safe/pharm/drawer. Provided discharge education on diet, meds, follow up, symptoms worsening, activity. Pt and spouse stated all questions answered. Pt escorted out via WC to POV with spouse.
== END 2025-02-09 12:00 | disposition home or self-care (01) ==
LOC: OR 07:49 → AC 07:49
PROVIDERS: PCP Internal Medicine; Referring Provider Orthopaedic Surgery Foot and Ankle Surgery; Visit Provider Orthopaedic Surgery Foot and Ankle Surgery
PROC: 0SRC0JZ Replacement of Right Knee Joint with Synthetic Substitute, Open Approach (ICD-10-PCS; CPT 27447; principal; 2025-02-08 10:30)
DX: M17.11 Unilateral primary osteoarthritis, right knee (principal); G89.18 Other acute postprocedural pain; E66.01 Morbid (severe) obesity due to excess calories; Z68.41 Body mass index [BMI] 40.0-44.9, adult; Z87.891 Personal history of nicotine dependence; M25.761 Osteophyte, right knee; M21.161 Varus deformity, not elsewhere classified, right knee
CPT/HCPCS: 27447; 20985; S2900; 36415; 64447; 64450; 73560; 85014; 85018; 97116; 97161; 97165; 97530; 99406; C1776; A9270; C1713; J0666; J0690; J1100; J2405; J2704; J3010